=== PATIENT | male | born 1970 | race Caucasian/White ===

== ENCOUNTER 2016-06-03 11:43 | Emergency (ER) | payer MEDICARE, MEDICAID ==
[~2016-06-03 11:43] MED LIST: /FENO48TA; /PANT40TA PO; /WARF2TA PO; /WARF5TA PO; /ZOLP6ER; ACET65TA OR; ACID CONTROLLER; ADVI200T26 PO; ALLE25CA; AMBI10TA PO; AMBI12.52 PO; AMBIEN PO; ASPI81TA7 PO; ASPI81TA83 OR; ATOR40TA PO; BACT400T PO; BACT800T5 PO; BENA25CA PO; CALCCHW18 PO; CEFA1INJ5 IV; CIAL2.5T PO; CINA30TA PO; CITA10TA5 PO; CORE3.12 PO; COUM1TAB19 PO; COUM6TAB PO; COUM7.5T PO; DIFI200T PO; DRIS50002 PO; FLUT1SPR2; FURO1TAB15 PO; GLYB1.255; HUMALOG; HYDR-3363 PO; HYDR-3713 PO; HYDR25TA8; IBUP600T PO; IMMODIUM PO; INSUHUMDS SC; INSULANT; INSULANT SC; KEFLEX; LASI40TA PO; LEVO100T4 PO; LEVO100T54 PO; LEVO2TA; LEVO2TA PO; LIPI10TA; LIPI10TA PO; LOPE2CA PO; LOPR50TA; MELA10CA PO; METO-346 PO; METO10TA2; METO25TAB PO; METO50TA4 PO; NASONEX; NEPH1CAP4 PO; NEPHROVITE; NITR4TASL SL; OCEAN NASAL SPRAY; ONDA1TAB15 PO; OXYC1TAB23 PO; PANT40TA2 PO; PERCOCET PO; PHOSLO667 MG; POLYSPORIN; RENAGEL; RENV2TAB PO; SENISPAR; SENS30TA PO; SENSIPAR PO; SYNT100T PO; TEMA30CA PO; TOPR25TA PO; TOPROL XL; TRAD5TAB PO; TRAZ25TA PO; TRAZ50TA; TRAZ50TA4 PO; TRAZADONE; TUMS500C; TYL325; TYLE1TAB5 PO; TYLENOL PM; VANC1VLAD INJ; VANC500I IV; VANC75VL IV; VELP5CHW PO; VICO5TAB; VIST25CA OR; VITAMIN B COMPLE1; WARF-20 PO; WARF-23 PO; WARF-58 PO; WARF-60 PO; WARF4TAB51 PO; ZEMPLAR; ZOLP5TAB PO; [UNRECOGNIZED DRUG - OTHER]; doxycycline PO; renvela; tums PO; tylenol PO; zemplar IV
--- NOTE | 2016-06-03 12:37 | REP ---
Clinical: Shortness of breath. Comparison: 04/22/2016. Findings: Mediastinum is stable again demonstrating cardiomegaly with evidence for prior sternotomy and valve replacement. Lung franco demonstrate chronic stable changes. No obvious acute consolidation, effusion, or pneumothorax. Skeletal structures intact. Impression: Cardiomegaly and chronic stable changes. Signed by Manfred Whitt MD 06/03/2016 12:29 P
[2016-06-03 13:14] LABS: BASO % 0.7 % (0.0-1.0); EOS # 0.1 K/mm3 (0.0-0.50); EOS % 2.4 % (0.0-3.0); LARGE UNSTAINED CELL # 0.2 K/mm3 (0.0-0.4); LARGE UNSTAINED CELL % 2.8 % (0.0-4.0); LYMPH # 0.6 K/mm3 (1.5-4.5); LYMPH % 10.5 % (24.0-44.0); MEAN CORPUSCULAR HEMOGLOBIN 29.1 pg (27.0-33.0); MEAN CORPUSCULAR HGB CONC 30.4 g/dl (32.0-36.5); MEAN CORPUSCULAR VOLUME 95.7 fl (80.0-96.0); MONO # 0.2 K/mm3 (0.0-0.8); MONO % 4.6 % (0.0-5.0); NEUTROPHILS # 4.2 K/mm3 (1.8-7.7); NEUTROPHILS % 78.9 % (36.0-66.0); PLATELET COUNT, AUTOMATED 210 k/mm3 (150-450); RED CELL DISTRIBUTION WIDTH 18.1 % (11.5-14.5); WHITE BLOOD COUNT 5.3 K/mm3 (4.0-10.0)
[2016-06-03] MEDS ORDERED: IPRATROPIUM 0.5MG/ALBUTEROL 2.5MG INH SOL UD 3ML (DUONEB)(J7620) As Ordered ONE (13:31)
[2016-06-03 13:36] LABS: CALCIUM LEVEL 8.7 MG/DL (8.5-10.1); CREATININE FOR GFR 8.3 MG/DL (0.70-1.30); GLOMERULAR FILTRATION RATE 7.5 (>60); POTASSIUM SERUM 4.3 MEQ/L (3.5-5.1)
[2016-06-03] MEDS ORDERED: ALBUTEROL 90 MCG/ACT 8GM HFA INHALER As Ordered ONE (14:42)
--- NOTE | 2016-06-03 14:54 | EDDOCDS ---
Nurse's Notes [facility] Name: Kristofer Madrid Age: 45 yrs Sex: Male : 1970 Arrival Date: 06/03/2016 Time: 11:43 Bed 4 Private MD: Kush Nam P Diagnosis: Acute upper respiratory infection, unspecified Presentation: 06/03 11:52 Presenting complaint: Patient states: treated for pneumonia 3 weeks ago. unsure of dy course of antibiotics. over the last 2 weeks has gotten progressively more SOB. Adult Sepsis Screening: The patient does not have new or worsening altered mentation. Patient's respiratory rate is less than 22. Systolic blood pressure is greater than 100. Patient has a qSOFA score of 0- Negative Sepsis Screen. Suicide/Homicide risk assessment- the patient denies having any suicidal and/or homicidal ideations and does not present with any other emotional, behavioral or mental health complaints. 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 Transition of care: patient was not received from another setting of care. 11:52 Acuity: SRINIVAS Level 2 dy 11:52 Method Of Arrival: Walkin/Carried/Asstd dy Triage Assessment: 11:55 General: Appears in no apparent distress. Pain: Denies pain. HIV screening NA for this dy visit Offered previously. Respiratory: Onset: The symptoms/episode began/occurred gradually. Historical: - Allergies: Latex; QUINOLONES; SUCCINYLCHOLINE; - Home Meds: 1. Advil PM 200-38 mg oral tab 2 tab 2. atorvastatin 40 mg oral tab 1 tab once daily 3. calcium gummies 250-100-500 mg 1 gummy DIRECTED 4. citalopram 10 mg Oral tab 1 tab once daily 5. hydrocodone-acetaminophen 5-325 mg Oral tab 1 tab every 4-6 hours 6. Lantus 100 unit/mL Sub-Q soln 30 unit daily 7. levothyroxine 200 mcg Oral tab 1 tab once daily 8. metoprolol tartrate 25 mg Oral tab 1 tab 2 times per day 9. ondansetron HCl 4 mg Oral tab 1 tabs 2 times per day as needed 10. pantoprazole 40 mg oral tab 1 tab once daily 11. Renvela 800 mg oral tab 3 times per day 4 tabs with meal, 2 tabs with snacks 12. Sensipar 30 mg oral tab once daily 13. trazodone 50 mg Oral tab 1 tab nightly 14. vancomycin 1 G intravenous solr 3 days a weel post dialysis 15. warfarin 6 mg Oral tab once daily up to 2 tabs daily - PMHx: Anxiety; CAD; CHF; Depression; Diabetes - IDDM: controlled; end stage renal failure; GERD; High Cholesterol; Hypertension; Sleep Apnea w/ CPAP; Thyroid problem; Votter's syndrome; - PSHx: multiple fistula formations with reversals; Ankle Arthroplasty, Right; Bowel resection; perforated anus; Aortic Valve Replacement, Mechanical; Mitral Valve Repair; - Social history: Smoking status: Patient states was never smoker of tobacco. No barriers to communication noted, The patient speaks fluent [place]ian, Speaks appropriately for age. - Family history: No immediate family members are acutely ill. - : The pt / caregiver states he / she is on anticoagulants: coumadin. Home medication list is obtained from the patient. - Exposure Risk Screening:: None identified. Screenin:53 Screening information is obtained from the patient. Fall risk: No risks identified. hs1 Assistance ADL's: requires no assistance with activities of daily living. Abuse/DV Screen: The patient / caregiver reports he/she is: not in a situation that causes fear, pain or injury. Nutritional screening: No deficits noted. Advance Directives: There is no active DNR order. home support is adequate. Assessment: 12:34 General: Appears in no apparent distress, comfortable, Behavior is appropriate for age, hs1 cooperative. Pain: Denies pain. Cardiovascular: Rhythm is sinus rhythm No ectopy. Cardiovascular: Capillary refill < 3 seconds Chest pain is denied. Respiratory: Airway is patent Respiratory effort is even, unlabored, Breath sounds are clear bilaterally. Reports shortness of breath on exertion. Derm: Skin is pink, warm & dry. normal. 13:45 General: Appears in no apparent distress, comfortable, Behavior is appropriate for age, hs1 cooperative. Pain: Denies pain. Cardiovascular: Rhythm is sinus rhythm No ectopy. Respiratory: Airway is patent Respiratory effort is even, unlabored, Breath sounds are clear bilaterally. Respiratory: Reports shortness of breath on exertion. Derm: Skin is pink, warm & dry. normal. 14:37 General: Ambulated patient at this time without any decrease in SPO2. Patient states hs1 feels like he is SOB and slows down while walking. Pt HR does increase mildly from 87 to 98. Pt vitals monitored after with decrease in HR noted back to 87 within 1 minute. No needs noted after walking and patient continues to deny chest pain. . Vital Signs: 11:45 BP 143 / 80 RA Sitting (auto/reg); Pulse 87; Resp 20; Temp 96.8(O); Pulse Ox 100% on rs6 R/A; Weight 86 kg (R); Height 5 ft. 2 in. (157.48 cm) (R); Pain 0/10; 12:57 BP 122 / 66 (auto/); hs1 12:59 Pulse 86 MON; Pulse Ox 98% ; hs1 13:12 BP 128 / 66 (auto/); hs1 13:12 Pulse 84 MON; Pulse Ox 98% ; hs1 13:27 BP 133 / 72 (auto/); hs1 13:27 Pulse 82 MON; Pulse Ox 94% ; hs1 13:42 BP 138 / 78 (auto/); hs1 13:42 Pulse 86 MON; Pulse Ox 97% ; hs1 13:57 BP 141 / 77 (auto/); hs1 13:59 Pulse 80 MON; Pulse Ox 97% ; hs1 14:12 BP 145 / 80 (auto/); hs1 14:12 Pulse 84 MON; Pulse Ox 99% ; hs1 14:42 BP 130 / 68 (auto/); hs1 14:42 Pulse 80 MON; Resp 18; Temp 98.0(TE); Pulse Ox 98% ; Pain 0/10; hs1 11:45 Body Mass Index 34.68 (86.00 kg, 157.48 cm) rs6 Vitals: 11:45 Log In Time: June 03, 2016 at 11:40. RN notified that patient meets Red Flag rs6 criteria. ED Course: 11:44 Patient visited by Suzie Stewart PCA. rs6 11:44 Patient moved to Waiting rs6 11:45 Kush Nam is Private Physician. rs6 11:47 Patient visited by Suzie Stewart PCA. rs6 11:47 Patient moved to Pre RCE rs6 11:53 Triage Initiated dy 11:56 Patient moved to 4 dy 12:04 Patient visited by Good Cardenas PCA. jrd 12:04 EKG done. (by ED staff). Reviewed by Jonathan Alonso MD. jrd 12:29 Patient visited by Jf Glez PCA. jlf 12:35 Inserted saline lock: 20 gauge in right upper arm near axilla. Pt tolerated well. hs1 12:42 Jonathan Alonso MD is Attending Physician. br1 13:00 Patient visited by Jf Glez PCA. jlf 13:15 Patient visited by Jonathan Alonso MD. br1 13:15 Chest, 1 View Returned. EDMS 13:46 Patient visited by Karie Lucas, VU. hs1 14:01 Patient visited by Tiki Causey, VU. ttb 14:01 Labs drawn. (by ED staff). ttb 14:23 Patient visited by Jf Glez PCA. jlf 14:36 Patient visited by Jonathan Alonso MD. br1 14:41 Kush Nam is Referral Physician. br1 14:50 [facility] Payment Agreement was scanned into [employer] and attached to record. pm4 14:51 Discontinued IV lock intact, bleeding controlled, pressure dressing applied, No hs1 redness/swelling at site. No procedures done that require assistance. 14:53 The patient / caregiver is instructed regarding the plan of care and ED course. hs1 Administered Medications: 13:33 Drug: Albuterol-Ipratropium 3 ml [ipratropium-albuterol 0.5 mg-3 mg(2.5 mg base)/3 mL ac1 nebulization soln (3 mL)] Route: Inhalation; 13:36 Follow up: bs-clear, rosa m procedure well ac1 14:45 Drug: Ventolin 2 puffs [Ventolin HFA 90 mcg/actuation aerosol inhaler (2 puffs)] Route: sd7 Inhalation; Intake: RT: 13:35 Initial Med Neb Given as ordered Patient was instructed and evaluated on procedure. ac1 13:35 Respiratory: Breath sounds are clear bilaterally. ac1 14:45 Initial MDI Given. Patient was instructed and evaluated on procedure Patient tolerated sd7 procedure well without adverse effect Spacer used Number of puffs given: 2. Order Results: Lab Order: CBC with Diff; SPEC'M 06/03/16 12:55 Test: WHITE BLOOD COUNT; Value: 5.3; Range: 4.0-10.0; Units: K/mm3; Status: F Test: RED BLOOD COUNT; Value: 3.06; Range: 4.30-6.10; Abnormal: Below low normal; Units: M/mm3; Status: F Test: HEMOGLOBIN; Value: 8.9; Range: 14.0-18.0; Abnormal: Below low normal; Units: g/dl; Status: F Test: HEMATOCRIT; Value: 29.3; Range: 42.0-52.0; Abnormal: Below low normal; Units: %; Status: F Test: MEAN CORPUSCULAR VOLUME; Value: 95.7; Range: 80.0-96.0; Units: fl; Status: F Test: MEAN CORPUSCULAR HEMOGLOBIN; Value: 29.1; Range: 27.0-33.0; Units: pg; Status: F Test: MEAN CORPUSCULAR HGB CONC; Value: 30.4; Range: 32.0-36.5; Abnormal: Below low normal; Units: g/dl; Status: F Test: RED CELL DISTRIBUTION WIDTH; Value: 18.1; Range: 11.5-14.5; Abnormal: Above high normal; Units: %; Status: F Test: PLATELET COUNT, AUTOMATED; Value: 210; Range: 150-450; Units: k/mm3; Status: F Test: NEUTROPHILS %; Value: 78.9; Range: 36.0-66.0; Abnormal: Above high normal; Units: %; Status: F Test: LYMPH %; Value: 10.5; Range: 24.0-44.0; Abnormal: Below low normal; Units: %; Status: F Test: MONO %; Value: 4.6; Range: 0.0-5.0; Units: %; Status: F Test: EOS %; Value: 2.4; Range: 0.0-3.0; Units: %; Status: F Test: BASO %; Value: 0.7; Range: 0.0-1.0; Units: %; Status: F Test: LARGE UNSTAINED CELL %; Value: 2.8; Range: 0.0-4.0; Units: %; Status: F Test: NEUTROPHILS #; Value: 4.2; Range: 1.8-7.7; Units: K/mm3; Status: F Test: LYMPH #; Value: 0.6; Range: 1.5-4.5; Abnormal: Below low normal; Units: K/mm3; Status: F Test: MONO #; Value: 0.2; Range: 0.0-0.8; Units: K/mm3; Status: F Test: EOS #; Value: 0.1; Range: 0.0-0.50; Units: K/mm3; Status: F Test: BASO #; Value: 0.0; Range: 0.0-0.2; Units: K/mm3; Status: F Test: LARGE UNSTAINED CELL #; Value: 0.2; Range: 0.0-0.4; Units: K/mm3; Status: F Lab Order: MED Profile; SPEC'M 06/03/16 12:55 Test: GLUCOSE, FASTING; Value: 248; Range: 70-105; Abnormal: Above high normal; Units: MG/DL; Status: F Test: BLOOD UREA NITROGEN; Value: 49; Range: 7-18; Abnormal: Above high normal; Units: MG/DL; Status: F Test: CREATININE FOR GFR; Value: 8.30; Range: 0.70-1.30; Abnormal: Above high normal; Units: MG/DL; Status: F Test: GLOMERULAR FILTRATION RATE; Value: 7.5; Range: >60; Abnormal: Below low normal; Status: F Test: SODIUM LEVEL; Value: 137; Range: 136-145; Units: MEQ/L; Status: F Test: POTASSIUM SERUM; Value: 4.3; Range: 3.5-5.1; Units: MEQ/L; Status: F Test: CHLORIDE LEVEL; Value: 100; Range: 98-107; Units: MEQ/L; Status: F Test: CARBON DIOXIDE LEVEL; Value: 22; Range: 21-32; Units: MEQ/L; Status: F Test: ANION GAP; Value: 15; Range: 8-16; Units: MEQ/L; Status: F Test: CALCIUM LEVEL; Value: 8.7; Range: 8.5-10.1; Units: MG/DL; Status: F Test Note: ; Units are mL/min/1.73 m2 Chronic Kidney Disease Staging per NKF: Stage I & II GFR >=60 Normal to Mildly Decreased Stage III GFR 30-59 Moderately Decreased Stage IV GFR 15-29 Severely Decreased Stage V GFR <15 Very Little GFR Left ESRD GFR <15 on 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 Lab Order: CIP; SPEC'M 06/03/16 12:55 Test: CPK CREATINE PHOSPHOKINASE; Value: 108; Range: 39-308; Units: U/L; Status: F Test: CK-MB VALUE MASS; Value: 3.4; Range: 0.0-3.6; Units: NG/ML; Status: F Test: MB/CK RELATIVE INDEX; Value: 3.14; Range: < OR =4; Status: F Test Note: ; DIAGNOSIS CRITERIA MMB ng/ml Relative Index (RI) NON-AMI < or = 5 N/A RAM ZONE > 5 < or = 4 AMI > 5 > 4 Lab Order: Troponin; SPEC'M 06/03/16 12:55 Test: TROPONIN I; Value: 0.03; Range: < 0.10; Units: NG/ML; Status: F Test Note: ; Troponin I Reference Interval for [employer] LOCI: 99th Percentile= 0.00-0.045 ng/ml Risk Stratification: <= 0.10 ng/ml Decreased Risk for Adverse Clinical Events. 0.10-1.50 ng/ml Increased Risk for Adverse Clinical Events. Evaluation of additional criterion and/or repeat testing in 2-6 hours is suggested to rule out myocardial damage. >= 1.50 ng/ml Indicative of Myocardial Injury. Lab Order: BNP; SPEC'M 06/03/16 12:55 Test: BRAIN NATRIURETIC PEPTIDE; Value: 2730; Range: <100; Abnormal: Above high normal; Units: PG/ML; Status: F Lab Order: -Influenza A&B Rapid Antigen - Nose; SPEC'M 06/03/16 13:27 Test: INFLUENZA A RAPID SCR by ICA; Value: INFLUENZA A RESULTS NEGATIVE; Status: F Test: INFLUENZA A RAPID SCR by ICA; Value: Comments:; Status: F Test: INFLUENZA B RAPID SCR by ICA; Value: INFLUENZA B RESULTS NEGATIVE; Status: F Test Note: ; The Influenza test is a direct rapid immunoassay for the qualitative detection of Influenza viral antigen. Cell culture (Viral Culture) testing should be considered to confirm NEGATIVE results and to assist in detecting other viruses that can provide similar clinical symptoms. Please contact the lab within 24 hours ([phone]) if confirmatory testing is desired. Radiology Order: Chest, 1 View Test: Chest, 1 View REASON FOR EXAMINATION: sob; Clinical: Shortness of breath.; ; Comparison: 04/22/2016.; ; Findings:; Mediastinum is stable again demonstrating cardiomegaly with evidence for prior; sternotomy and valve replacement. Lung franco demonstrate chronic stable; changes. No obvious acute consolidation, effusion, or pneumothorax. Skeletal; structures intact.; ; Impression:; Cardiomegaly and chronic stable changes.; ; ; Signed by; Manfred Whitt MD 06/03/2016 12:29 P; Outcome: 14:41 Discharge ordered by Provider. br1 14:51 Discharge Assessment: Patient awake, alert and oriented x 3. No cognitive and/or hs1 functional deficits noted. Patient verbalized understanding of disposition instructions. patient administered narcotics - no. The following High Risk Discharge criteria are identified: None. Discharged to home ambulatory. Condition: stable. Discharge instructions given to patient, Instructed on discharge instructions, follow up and referral plans. sales technician in to educate about spacer teaching with albuterol inhaler. Demonstrated understanding of instructions, medications, Pt was receptive of discharge instructions/ teaching. No special radiology studies were completed. Property sent home with patient. 14:53 Patient left the ED. hs1 Signatures: Dispatcher [employer] EDMS Gaye Sprague,RT RT ac1 Babak Koehler, RN VU dy Jonathan Alonso MD MD br1 Karie Lucas RN RN hs1 Tiki Causey RN RN ttb Jf Glez, FOOD BAGGING MACHINE OPERATOR FOOD BAGGING MACHINE OPERATOR Tori Fountain,RT RT sd7 Good Cardenas, FOOD BAGGING MACHINE OPERATOR FOOD BAGGING MACHINE OPERATOR Suzie Simpson, FOOD BAGGING MACHINE OPERATOR FOOD BAGGING MACHINE OPERATOR rs6 Darrel Wallace, Reg Reg pm4 Corrections: (The following items were deleted from the chart) 14:53 14:42 Pulse 80bpm; Monitor; Pulse Ox 98%; hs1 hs1 MTDD
--- NOTE | 2016-06-03 14:54 | EDDOCDS ---
Physician Documentation [facility] Name: Kristofer Madrid Age: 45 yrs Sex: Male : 1970 Arrival Date: 06/03/2016 Time: 11:43 Bed 4 Private MD: Kush Nam P Disposition: 06/03/16 14:41 Discharged to Home/Self Care. Impression: Acute upper respiratory infection, unspecified. - Condition is Stable. - Discharge Instructions: Shortness of Breath, Upper Respiratory Infection, Adult. - Medication Reconciliation, Local Pharmacy Hours form. - Follow up: Kush Nam; When: Tomorrow; Reason: Recheck today's complaints. - Problem is new. - Symptoms have improved. - Notes: You were seen in the ED for shortness of breath. Bloodwork showed no acute changes from prior. Chest Xray showed chronic changes but no acute findings as well. Flu swab is negative. You were treated and improved with a breathing treatment in the ED as well. As you are feeling better you may return home to follow up with Dr. Nam tomorrow for dialysis and recheck of the symptoms. You may use the inhaler as needed for shortness of breath or wheezing. Return to the ED for any return of trouble breathing, lightheadedness, loss of consciousness, chest pain, fever, or any other concerns. Historical: - Allergies: Latex; QUINOLONES; SUCCINYLCHOLINE; - Home Meds: 1. Advil PM 200-38 mg oral tab 2 tab 2. atorvastatin 40 mg oral tab 1 tab once daily 3. calcium gummies 250-100-500 mg 1 gummy DIRECTED 4. citalopram 10 mg Oral tab 1 tab once daily 5. hydrocodone-acetaminophen 5-325 mg Oral tab 1 tab every 4-6 hours 6. Lantus 100 unit/mL Sub-Q soln 30 unit daily 7. levothyroxine 200 mcg Oral tab 1 tab once daily 8. metoprolol tartrate 25 mg Oral tab 1 tab 2 times per day 9. ondansetron HCl 4 mg Oral tab 1 tabs 2 times per day as needed 10. pantoprazole 40 mg oral tab 1 tab once daily 11. Renvela 800 mg oral tab 3 times per day 4 tabs with meal, 2 tabs with snacks 12. Sensipar 30 mg oral tab once daily 13. trazodone 50 mg Oral tab 1 tab nightly 14. vancomycin 1 G intravenous solr 3 days a weel post dialysis 15. warfarin 6 mg Oral tab once daily up to 2 tabs daily - PMHx: Anxiety; CAD; CHF; Depression; Diabetes - IDDM: controlled; end stage renal failure; GERD; High Cholesterol; Hypertension; Sleep Apnea w/ CPAP; Thyroid problem; Votter's syndrome; - PSHx: multiple fistula formations with reversals; Ankle Arthroplasty, Right; Bowel resection; perforated anus; Aortic Valve Replacement, Mechanical; Mitral Valve Repair; - Social history: Smoking status: Patient states was never smoker of tobacco. No barriers to communication noted, The patient speaks fluent [place], Speaks appropriately for age. - Family history: No immediate family members are acutely ill. - : The pt / caregiver states he / she is on anticoagulants: coumadin. Home medication list is obtained from the patient. - Exposure Risk Screening:: None identified. Vital Signs: 06/03 11:45 BP 143 / 80 RA Sitting (auto/reg); Pulse 87; Resp 20; Temp 96.8(O); Pulse Ox 100% on rs6 R/A; Weight 86 kg / 189.6 lbs (R); Height 5 ft. 2 in. (157.48 cm) (R); Pain 0/10; 12:57 BP 122 / 66 (auto/); hs1 12:59 Pulse 86 MON; Pulse Ox 98% ; hs1 13:12 BP 128 / 66 (auto/); hs1 13:12 Pulse 84 MON; Pulse Ox 98% ; hs1 13:27 BP 133 / 72 (auto/); hs1 13:27 Pulse 82 MON; Pulse Ox 94% ; hs1 13:42 BP 138 / 78 (auto/); hs1 13:42 Pulse 86 MON; Pulse Ox 97% ; hs1 13:57 BP 141 / 77 (auto/); hs1 13:59 Pulse 80 MON; Pulse Ox 97% ; hs1 14:12 BP 145 / 80 (auto/); hs1 14:12 Pulse 84 MON; Pulse Ox 99% ; hs1 14:42 BP 130 / 68 (auto/); hs1 14:42 Pulse 80 MON; Resp 18; Temp 98.0(TE); Pulse Ox 98% ; Pain 0/10; hs1 11:45 Body Mass Index 34.68 (86.00 kg, 157.48 cm) rs6 MDM: 11:57 ECG WITH READING ER PHYS+CARDIAG ordered. EDMS 11:59 IV Saline Lock ordered. ml 11:[address] Sql Developer/Pulse Ox/q 15 min VS ordered. ml 11:59 Chest, 1 View Ordered. EDMS 11:59 CBC with Diff Ordered. EDMS 11:59 MED Profile Ordered. EDMS 11:59 CIP Ordered. EDMS 11:59 Troponin Ordered. EDMS 11:59 BNP Ordered. EDMS 13:15 Albuterol-Ipratropium 3 ml Inhalation once ordered. br1 13:15 Call Respiratory ordered. br1 13:17 -Influenza A&B Rapid Antigen - Nose Ordered. EDMS 13:20 Call Respiratory complete. lbd 13:57 Financial registration complete. pm4 14:23 CBC with Diff Reviewed. br1 14:23 MED Profile Reviewed. br1 14:23 BNP Reviewed. br1 14:23 CIP Reviewed. br1 14:23 Troponin Reviewed. br1 14:23 -Influenza A&B Rapid Antigen - Nose Reviewed. br1 14:23 Chest, 1 View Reviewed. br1 14:25 Ambulate Patient wth Pulse Oximetry ordered. br1 14:36 Ventolin Inhaler 2 puffs Inhalation once ordered. br1 14:50 [facility] Payment Agreement was scanned into [employer] and attached to record. pm4 Administered Medications: 13:33 Drug: Albuterol-Ipratropium 3 ml [ipratropium-albuterol 0.5 mg-3 mg(2.5 mg base)/3 mL ac1 nebulization soln (3 mL)] Route: Inhalation; 13:36 Follow up: bs-clear, rosa m procedure well ac1 14:45 Drug: Ventolin 2 puffs [Ventolin HFA 90 mcg/actuation aerosol inhaler (2 puffs)] Route: sd7 Inhalation; Signatures: Dispatcher [employer] EDMS Mike Edwards MD MD ml Daly, Linda, Pbx Inspector Unit lbd Babak Koehler RN RN dy Jonathan Alonso MD MD br1 Karie Lucas RN RN hs1 Darrel Wallace, Reg Reg pm4 Gaye Sprague RT ac1 Tori Ward RT sd7 The chart was reviewed and I authenticate all verbal orders and agree with the evaluation and treatment provided.Attachments: 14:50 [place] Payment Agreement pm4 MTDD
--- NOTE | 2016-06-03 18:10 | ECGEPIP ---
Stationary ECG Study [facility] - ED Test Date: 2016-06-03 Pat Name: BOOGIE MONTERO Department: Room: - Gender: M Pharmacy Salesperson: zohreh : 1970 Requested By: Miek Edwards Order Number: [id number] Reading MD: Jessica Fair Measurements Intervals [place] Rate: 84 P: 3 KS: 182 QRS: 21 QRSD: 105 T: 60 QT: 364 QTc: 432 Interpretive Statements SINUS RHYTHM NONSPECIFIC T-WAVE ABNORMALITY SIMILAR 04/21/16 Electronically Signed On 06-03-2016 18:09:58 EST by Jessica Fair
--- NOTE | 2016-06-05 15:54 | EDDOCDS ---
Physician Documentation [facility] Name: Kristofer Madrid Age: 45 yrs Sex: Male : 1970 Arrival Date: 06/03/2016 Time: 11:43 Bed 4 Private MD: Kush Nam P Disposition: 06/03/16 14:41 Discharged to Home/Self Care. Impression: Acute upper respiratory infection, unspecified. - Condition is Stable. - Discharge Instructions: Shortness of Breath, Upper Respiratory Infection, Adult. - Medication Reconciliation, Local Pharmacy Hours form. - Follow up: Kush Nam; When: Tomorrow; Reason: Recheck today's complaints. - Problem is new. - Symptoms have improved. - Notes: You were seen in the ED for shortness of breath. Bloodwork showed no acute changes from prior. Chest Xray showed chronic changes but no acute findings as well. Flu swab is negative. You were treated and improved with a breathing treatment in the ED as well. As you are feeling better you may return home to follow up with Dr. Nam tomorrow for dialysis and recheck of the symptoms. You may use the inhaler as needed for shortness of breath or wheezing. Return to the ED for any return of trouble breathing, lightheadedness, loss of consciousness, chest pain, fever, or any other concerns. Historical: - Allergies: Latex; QUINOLONES; SUCCINYLCHOLINE; - Home Meds: 1. Advil PM 200-38 mg oral tab 2 tab 2. atorvastatin 40 mg oral tab 1 tab once daily 3. calcium gummies 250-100-500 mg 1 gummy DIRECTED 4. citalopram 10 mg Oral tab 1 tab once daily 5. hydrocodone-acetaminophen 5-325 mg Oral tab 1 tab every 4-6 hours 6. Lantus 100 unit/mL Sub-Q soln 30 unit daily 7. levothyroxine 200 mcg Oral tab 1 tab once daily 8. metoprolol tartrate 25 mg Oral tab 1 tab 2 times per day 9. ondansetron HCl 4 mg Oral tab 1 tabs 2 times per day as needed 10. pantoprazole 40 mg oral tab 1 tab once daily 11. Renvela 800 mg oral tab 3 times per day 4 tabs with meal, 2 tabs with snacks 12. Sensipar 30 mg oral tab once daily 13. trazodone 50 mg Oral tab 1 tab nightly 14. vancomycin 1 G intravenous solr 3 days a weel post dialysis 15. warfarin 6 mg Oral tab once daily up to 2 tabs daily - PMHx: Anxiety; CAD; CHF; Depression; Diabetes - IDDM: controlled; end stage renal failure; GERD; High Cholesterol; Hypertension; Sleep Apnea w/ CPAP; Thyroid problem; Votter's syndrome; - PSHx: multiple fistula formations with reversals; Ankle Arthroplasty, Right; Bowel resection; perforated anus; Aortic Valve Replacement, Mechanical; Mitral Valve Repair; - Social history: Smoking status: Patient states was never smoker of tobacco. No barriers to communication noted, The patient speaks fluent Panamanian, Speaks appropriately for age. - Family history: No immediate family members are acutely ill. - : The pt / caregiver states he / she is on anticoagulants: coumadin. Home medication list is obtained from the patient. - Exposure Risk Screening:: None identified. Vital Signs: 06/03 11:45 BP 143 / 80 RA Sitting (auto/reg); Pulse 87; Resp 20; Temp 96.8(O); Pulse Ox 100% on rs6 R/A; Weight 86 kg / 189.6 lbs (R); Height 5 ft. 2 in. (157.48 cm) (R); Pain 0/10; 12:57 BP 122 / 66 (auto/); hs1 12:59 Pulse 86 MON; Pulse Ox 98% ; hs1 13:12 BP 128 / 66 (auto/); hs1 13:12 Pulse 84 MON; Pulse Ox 98% ; hs1 13:27 BP 133 / 72 (auto/); hs1 13:27 Pulse 82 MON; Pulse Ox 94% ; hs1 13:42 BP 138 / 78 (auto/); hs1 13:42 Pulse 86 MON; Pulse Ox 97% ; hs1 13:57 BP 141 / 77 (auto/); hs1 13:59 Pulse 80 MON; Pulse Ox 97% ; hs1 14:12 BP 145 / 80 (auto/); hs1 14:12 Pulse 84 MON; Pulse Ox 99% ; hs1 14:42 BP 130 / 68 (auto/); hs1 14:42 Pulse 80 MON; Resp 18; Temp 98.0(TE); Pulse Ox 98% ; Pain 0/10; hs1 11:45 Body Mass Index 34.68 (86.00 kg, 157.48 cm) rs6 MDM: 11:57 ECG WITH READING ER PHYS+CARDIAG ordered. EDMS 11:59 IV Saline Lock ordered. ml 11:59 Decker Operator/Pulse Ox/q 15 min VS ordered. ml 11:59 Chest, 1 View Ordered. EDMS 11:59 CBC with Diff Ordered. EDMS 11:59 MED Profile Ordered. EDMS 11:59 CIP Ordered. EDMS 11:59 Troponin Ordered. EDMS 11:59 BNP Ordered. EDMS 13:15 Albuterol-Ipratropium 3 ml Inhalation once ordered. br1 13:15 Call Respiratory ordered. br1 13:17 -Influenza A&B Rapid Antigen - Nose Ordered. EDMS 13:20 Call Respiratory complete. lbd 13:57 Financial registration complete. pm4 14:23 CBC with Diff Reviewed. br1 14:23 MED Profile Reviewed. br1 14:23 BNP Reviewed. br1 14:23 CIP Reviewed. br1 14:23 Troponin Reviewed. br1 14:23 -Influenza A&B Rapid Antigen - Nose Reviewed. br1 14:23 Chest, 1 View Reviewed. br1 14:25 Ambulate Patient wth Pulse Oximetry ordered. br1 14:36 Ventolin Inhaler 2 puffs Inhalation once ordered. br1 14:50 [facility] Payment Agreement was scanned into drumbi and attached to record. pm4 15:10 T-Sheet-- Draft Copy was scanned into drumbi and attached to record. gb 06/04 09:11 ECG/EKG was scanned into drumbi and attached to record. gb Administered Medications: 06/03 13:33 Drug: Albuterol-Ipratropium 3 ml [ipratropium-albuterol 0.5 mg-3 mg(2.5 mg base)/3 mL ac1 nebulization soln (3 mL)] Route: Inhalation; 13:36 Follow up: bs-clear, rosa m procedure well ac1 14:45 Drug: Ventolin 2 puffs [Ventolin HFA 90 mcg/actuation aerosol inhaler (2 puffs)] Route: sd7 Inhalation; Signatures: Dispatcher [employer] EDMS Mike Edwards MD MD ml Daly, Linda, Literacy Consultant Unit lbd Michelle Huynh, Reg Reg gb Babak Koehler, RN RN dy Jonathan Alonso MD MD br1 Karie Lucas RN RN hs1 Darrel Wallace, Reg Reg pm4 Gaye Sprague RT ac1 Tori Ward RT sd7 The chart was reviewed and I authenticate all verbal orders and agree with the evaluation and treatment provided.Attachments: 14:50 [facility] Payment Agreement pm4 15:10 T-Sheet-- Draft Copy gb 06/04 09:11 ECG/EKG gb Chart Complete MTDD
--- NOTE | 2016-06-05 15:54 | EDDOCDS ---
Physician Documentation [facility] Name: Kristofer Madrid Age: 45 yrs Sex: Male : 1970 Arrival Date: 06/03/2016 Time: 11:43 Bed 4 Private MD: Kush Nam P Disposition: 06/03/16 14:41 Discharged to Home/Self Care. Impression: Acute upper respiratory infection, unspecified. - Condition is Stable. - Discharge Instructions: Shortness of Breath, Upper Respiratory Infection, Adult. - Medication Reconciliation, Local Pharmacy Hours form. - Follow up: Kush Nam; When: Tomorrow; Reason: Recheck today's complaints. - Problem is new. - Symptoms have improved. - Notes: You were seen in the ED for shortness of breath. Bloodwork showed no acute changes from prior. Chest Xray showed chronic changes but no acute findings as well. Flu swab is negative. You were treated and improved with a breathing treatment in the ED as well. As you are feeling better you may return home to follow up with Dr. Nam tomorrow for dialysis and recheck of the symptoms. You may use the inhaler as needed for shortness of breath or wheezing. Return to the ED for any return of trouble breathing, lightheadedness, loss of consciousness, chest pain, fever, or any other concerns. Historical: - Allergies: Latex; QUINOLONES; SUCCINYLCHOLINE; - Home Meds: 1. Advil PM 200-38 mg oral tab 2 tab 2. atorvastatin 40 mg oral tab 1 tab once daily 3. calcium gummies 250-100-500 mg 1 gummy DIRECTED 4. citalopram 10 mg Oral tab 1 tab once daily 5. hydrocodone-acetaminophen 5-325 mg Oral tab 1 tab every 4-6 hours 6. Lantus 100 unit/mL Sub-Q soln 30 unit daily 7. levothyroxine 200 mcg Oral tab 1 tab once daily 8. metoprolol tartrate 25 mg Oral tab 1 tab 2 times per day 9. ondansetron HCl 4 mg Oral tab 1 tabs 2 times per day as needed 10. pantoprazole 40 mg oral tab 1 tab once daily 11. Renvela 800 mg oral tab 3 times per day 4 tabs with meal, 2 tabs with snacks 12. Sensipar 30 mg oral tab once daily 13. trazodone 50 mg Oral tab 1 tab nightly 14. vancomycin 1 G intravenous solr 3 days a weel post dialysis 15. warfarin 6 mg Oral tab once daily up to 2 tabs daily - PMHx: Anxiety; CAD; CHF; Depression; Diabetes - IDDM: controlled; end stage renal failure; GERD; High Cholesterol; Hypertension; Sleep Apnea w/ CPAP; Thyroid problem; Votter's syndrome; - PSHx: multiple fistula formations with reversals; Ankle Arthroplasty, Right; Bowel resection; perforated anus; Aortic Valve Replacement, Mechanical; Mitral Valve Repair; - Social history: Smoking status: Patient states was never smoker of tobacco. No barriers to communication noted, The patient speaks fluent Kenyan, Speaks appropriately for age. - Family history: No immediate family members are acutely ill. - : The pt / caregiver states he / she is on anticoagulants: coumadin. Home medication list is obtained from the patient. - Exposure Risk Screening:: None identified. Vital Signs: 06/03 11:45 BP 143 / 80 RA Sitting (auto/reg); Pulse 87; Resp 20; Temp 96.8(O); Pulse Ox 100% on rs6 R/A; Weight 86 kg / 189.6 lbs (R); Height 5 ft. 2 in. (157.48 cm) (R); Pain 0/10; 12:57 BP 122 / 66 (auto/); hs1 12:59 Pulse 86 MON; Pulse Ox 98% ; hs1 13:12 BP 128 / 66 (auto/); hs1 13:12 Pulse 84 MON; Pulse Ox 98% ; hs1 13:27 BP 133 / 72 (auto/); hs1 13:27 Pulse 82 MON; Pulse Ox 94% ; hs1 13:42 BP 138 / 78 (auto/); hs1 13:42 Pulse 86 MON; Pulse Ox 97% ; hs1 13:57 BP 141 / 77 (auto/); hs1 13:59 Pulse 80 MON; Pulse Ox 97% ; hs1 14:12 BP 145 / 80 (auto/); hs1 14:12 Pulse 84 MON; Pulse Ox 99% ; hs1 14:42 BP 130 / 68 (auto/); hs1 14:42 Pulse 80 MON; Resp 18; Temp 98.0(TE); Pulse Ox 98% ; Pain 0/10; hs1 11:45 Body Mass Index 34.68 (86.00 kg, 157.48 cm) rs6 MDM: 11:57 ECG WITH READING ER PHYS+CARDIAG ordered. EDMS 11:59 IV Saline Lock ordered. ml 11:59 Business Process Coordinator/Pulse Ox/q 15 min VS ordered. ml 11:59 Chest, 1 View Ordered. EDMS 11:59 CBC with Diff Ordered. EDMS 11:59 MED Profile Ordered. EDMS 11:59 CIP Ordered. EDMS 11:59 Troponin Ordered. EDMS 11:59 BNP Ordered. EDMS 13:15 Albuterol-Ipratropium 3 ml Inhalation once ordered. br1 13:15 Call Respiratory ordered. br1 13:17 -Influenza A&B Rapid Antigen - Nose Ordered. EDMS 13:20 Call Respiratory complete. lbd 13:57 Financial registration complete. pm4 14:23 CBC with Diff Reviewed. br1 14:23 MED Profile Reviewed. br1 14:23 BNP Reviewed. br1 14:23 CIP Reviewed. br1 14:23 Troponin Reviewed. br1 14:23 -Influenza A&B Rapid Antigen - Nose Reviewed. br1 14:23 Chest, 1 View Reviewed. br1 14:25 Ambulate Patient wth Pulse Oximetry ordered. br1 14:36 Ventolin Inhaler 2 puffs Inhalation once ordered. br1 14:50 [facility] Payment Agreement was scanned into avandeo and attached to record. pm4 15:10 T-Sheet-- Draft Copy was scanned into avandeo and attached to record. gb 06/04 09:11 ECG/EKG was scanned into avandeo and attached to record. gb Administered Medications: 06/03 13:33 Drug: Albuterol-Ipratropium 3 ml [ipratropium-albuterol 0.5 mg-3 mg(2.5 mg base)/3 mL ac1 nebulization soln (3 mL)] Route: Inhalation; 13:36 Follow up: bs-clear, rosa m procedure well ac1 14:45 Drug: Ventolin 2 puffs [Ventolin HFA 90 mcg/actuation aerosol inhaler (2 puffs)] Route: sd7 Inhalation; Signatures: Dispatcher [employer] EDMS Mike Edwards MD MD ml Daly, Linda, Grocery Clerk Stocking Unit lbd Michelle Huynh, Reg Reg gb Babak Koehler, RN RN dy Jonathan Alonso MD MD br1 Karie Lucas RN RN hs1 Darrel Wallace, Reg Reg pm4 Gaye Sprague RT ac1 Tori Ward RT sd7 The chart was reviewed and I authenticate all verbal orders and agree with the evaluation and treatment provided.Attachments: 14:50 [facility] Payment Agreement pm4 15:10 T-Sheet-- Draft Copy gb 06/04 09:11 ECG/EKG gb Chart Complete MTDD
--- NOTE | 2016-06-05 15:54 | EDDOCDS ---
Nurse's Notes [facility] Name: Kristofer Madrid Age: 45 yrs Sex: Male : 1970 Arrival Date: 06/03/2016 Time: 11:43 Bed 4 Private MD: Kush Nam P Diagnosis: Acute upper respiratory infection, unspecified Presentation: 06/03 11:52 Presenting complaint: Patient states: treated for pneumonia 3 weeks ago. unsure of dy course of antibiotics. over the last 2 weeks has gotten progressively more SOB. Adult Sepsis Screening: The patient does not have new or worsening altered mentation. Patient's respiratory rate is less than 22. Systolic blood pressure is greater than 100. Patient has a qSOFA score of 0- Negative Sepsis Screen. Suicide/Homicide risk assessment- the patient denies having any suicidal and/or homicidal ideations and does not present with any other emotional, behavioral or mental health complaints. Status: Patient is not a furniture servicer or dependent. Transition of care: patient was not received from another setting of care. 11:52 Acuity: SRINIVAS Level 2 dy 11:52 Method Of Arrival: Walkin/Carried/Asstd dy Triage Assessment: 11:55 General: Appears in no apparent distress. Pain: Denies pain. HIV screening NA for this dy visit Offered previously. Respiratory: Onset: The symptoms/episode began/occurred gradually. Historical: - Allergies: Latex; QUINOLONES; SUCCINYLCHOLINE; - Home Meds: 1. Advil PM 200-38 mg oral tab 2 tab 2. atorvastatin 40 mg oral tab 1 tab once daily 3. calcium gummies 250-100-500 mg 1 gummy DIRECTED 4. citalopram 10 mg Oral tab 1 tab once daily 5. hydrocodone-acetaminophen 5-325 mg Oral tab 1 tab every 4-6 hours 6. Lantus 100 unit/mL Sub-Q soln 30 unit daily 7. levothyroxine 200 mcg Oral tab 1 tab once daily 8. metoprolol tartrate 25 mg Oral tab 1 tab 2 times per day 9. ondansetron HCl 4 mg Oral tab 1 tabs 2 times per day as needed 10. pantoprazole 40 mg oral tab 1 tab once daily 11. Renvela 800 mg oral tab 3 times per day 4 tabs with meal, 2 tabs with snacks 12. Sensipar 30 mg oral tab once daily 13. trazodone 50 mg Oral tab 1 tab nightly 14. vancomycin 1 G intravenous solr 3 days a weel post dialysis 15. warfarin 6 mg Oral tab once daily up to 2 tabs daily - PMHx: Anxiety; CAD; CHF; Depression; Diabetes - IDDM: controlled; end stage renal failure; GERD; High Cholesterol; Hypertension; Sleep Apnea w/ CPAP; Thyroid problem; Votter's syndrome; - PSHx: multiple fistula formations with reversals; Ankle Arthroplasty, Right; Bowel resection; perforated anus; Aortic Valve Replacement, Mechanical; Mitral Valve Repair; - Social history: Smoking status: Patient states was never smoker of tobacco. No barriers to communication noted, The patient speaks fluent Armenian, Speaks appropriately for age. - Family history: No immediate family members are acutely ill. - : The pt / caregiver states he / she is on anticoagulants: coumadin. Home medication list is obtained from the patient. - Exposure Risk Screening:: None identified. Screenin:53 Screening information is obtained from the patient. Fall risk: No risks identified. hs1 Assistance ADL's: requires no assistance with activities of daily living. Abuse/DV Screen: The patient / caregiver reports he/she is: not in a situation that causes fear, pain or injury. Nutritional screening: No deficits noted. Advance Directives: There is no active DNR order. home support is adequate. Assessment: 12:34 General: Appears in no apparent distress, comfortable, Behavior is appropriate for age, hs1 cooperative. Pain: Denies pain. Cardiovascular: Rhythm is sinus rhythm No ectopy. Cardiovascular: Capillary refill < 3 seconds Chest pain is denied. Respiratory: Airway is patent Respiratory effort is even, unlabored, Breath sounds are clear bilaterally. Reports shortness of breath on exertion. Derm: Skin is pink, warm & dry. normal. 13:45 General: Appears in no apparent distress, comfortable, Behavior is appropriate for age, hs1 cooperative. Pain: Denies pain. Cardiovascular: Rhythm is sinus rhythm No ectopy. Respiratory: Airway is patent Respiratory effort is even, unlabored, Breath sounds are clear bilaterally. Respiratory: Reports shortness of breath on exertion. Derm: Skin is pink, warm & dry. normal. 14:37 General: Ambulated patient at this time without any decrease in SPO2. Patient states hs1 feels like he is SOB and slows down while walking. Pt HR does increase mildly from 87 to 98. Pt vitals monitored after with decrease in HR noted back to 87 within 1 minute. No needs noted after walking and patient continues to deny chest pain. . Vital Signs: 11:45 BP 143 / 80 RA Sitting (auto/reg); Pulse 87; Resp 20; Temp 96.8(O); Pulse Ox 100% on rs6 R/A; Weight 86 kg (R); Height 5 ft. 2 in. (157.48 cm) (R); Pain 0/10; 12:57 BP 122 / 66 (auto/); hs1 12:59 Pulse 86 MON; Pulse Ox 98% ; hs1 13:12 BP 128 / 66 (auto/); hs1 13:12 Pulse 84 MON; Pulse Ox 98% ; hs1 13:27 BP 133 / 72 (auto/); hs1 13:27 Pulse 82 MON; Pulse Ox 94% ; hs1 13:42 BP 138 / 78 (auto/); hs1 13:42 Pulse 86 MON; Pulse Ox 97% ; hs1 13:57 BP 141 / 77 (auto/); hs1 13:59 Pulse 80 MON; Pulse Ox 97% ; hs1 14:12 BP 145 / 80 (auto/); hs1 14:12 Pulse 84 MON; Pulse Ox 99% ; hs1 14:42 BP 130 / 68 (auto/); hs1 14:42 Pulse 80 MON; Resp 18; Temp 98.0(TE); Pulse Ox 98% ; Pain 0/10; hs1 11:45 Body Mass Index 34.68 (86.00 kg, 157.48 cm) rs6 Vitals: 11:45 Log In Time: June 03, 2016 at 11:40. RN notified that patient meets Red Flag rs6 criteria. ED Course: 11:44 Patient visited by Suzie Stewart PCA. rs6 11:44 Patient moved to Waiting rs6 11:45 Kush Nam is Private Physician. rs6 11:47 Patient visited by Suzie Stewart PCA. rs6 11:47 Patient moved to Pre RCE rs6 11:53 Triage Initiated dy 11:56 Patient moved to 4 dy 12:04 Patient visited by Good Cardenas PCA. jrd 12:04 EKG done. (by ED staff). Reviewed by Jonathan Alonso MD. jrd 12:29 Patient visited by Jf Glez PCA. jlf 12:35 Inserted saline lock: 20 gauge in right upper arm near axilla. Pt tolerated well. hs1 12:42 Jonathan Alonso MD is Attending Physician. br1 13:00 Patient visited by Jf Glez PCA. jlf 13:15 Patient visited by Jonathan Alonso MD. br1 13:15 Chest, 1 View Returned. EDMS 13:46 Patient visited by Karie Lucas, VU. hs1 14:01 Patient visited by Tiki Causey, VU. ttb 14:01 Labs drawn. (by ED staff). ttb 14:23 Patient visited by Jf Glez PCA. jlf 14:36 Patient visited by Jonathan Alonso MD. br1 14:41 Kush Nam is Referral Physician. br1 14:50 [facility] [place] was scanned into [employer] and attached to record. pm4 14:51 Discontinued IV lock intact, bleeding controlled, pressure dressing applied, No hs1 redness/swelling at site. No procedures done that require assistance. 14:53 The patient / caregiver is instructed regarding the plan of care and ED course. hs1 15:10 T-Sheet-- Draft Copy was scanned into [employer] and attached to record. gb 19:13 EKG-ADULT Returned. EDMS 06/04 09:11 ECG/EKG was scanned into [employer] and attached to record. gb Administered Medications: 06/03 13:33 Drug: Albuterol-Ipratropium 3 ml [ipratropium-albuterol 0.5 mg-3 mg(2.5 mg base)/3 mL ac1 nebulization soln (3 mL)] Route: Inhalation; 13:36 Follow up: bs-clear, rosa m procedure well ac1 14:45 Drug: Ventolin 2 puffs [Ventolin HFA 90 mcg/actuation aerosol inhaler (2 puffs)] Route: sd7 Inhalation; Intake: RT: 13:35 Initial Med Neb Given as ordered Patient was instructed and evaluated on procedure. ac1 13:35 Respiratory: Breath sounds are clear bilaterally. ac1 14:45 Initial MDI Given. Patient was instructed and evaluated on procedure Patient tolerated sd7 procedure well without adverse effect Spacer used Number of puffs given: 2. Order Results: Lab Order: CBC with Diff; SPEC'M 06/03/16 12:55 Test: WHITE BLOOD COUNT; Value: 5.3; Range: 4.0-10.0; Units: K/mm3; Status: F Test: RED BLOOD COUNT; Value: 3.06; Range: 4.30-6.10; Abnormal: Below low normal; Units: M/mm3; Status: F Test: HEMOGLOBIN; Value: 8.9; Range: 14.0-18.0; Abnormal: Below low normal; Units: g/dl; Status: F Test: HEMATOCRIT; Value: 29.3; Range: 42.0-52.0; Abnormal: Below low normal; Units: %; Status: F Test: MEAN CORPUSCULAR VOLUME; Value: 95.7; Range: 80.0-96.0; Units: fl; Status: F Test: MEAN CORPUSCULAR HEMOGLOBIN; Value: 29.1; Range: 27.0-33.0; Units: pg; Status: F Test: MEAN CORPUSCULAR HGB CONC; Value: 30.4; Range: 32.0-36.5; Abnormal: Below low normal; Units: g/dl; Status: F Test: RED CELL DISTRIBUTION WIDTH; Value: 18.1; Range: 11.5-14.5; Abnormal: Above high normal; Units: %; Status: F Test: PLATELET COUNT, AUTOMATED; Value: 210; Range: 150-450; Units: k/mm3; Status: F Test: NEUTROPHILS %; Value: 78.9; Range: 36.0-66.0; Abnormal: Above high normal; Units: %; Status: F Test: LYMPH %; Value: 10.5; Range: 24.0-44.0; Abnormal: Below low normal; Units: %; Status: F Test: MONO %; Value: 4.6; Range: 0.0-5.0; Units: %; Status: F Test: EOS %; Value: 2.4; Range: 0.0-3.0; Units: %; Status: F Test: BASO %; Value: 0.7; Range: 0.0-1.0; Units: %; Status: F Test: LARGE UNSTAINED CELL %; Value: 2.8; Range: 0.0-4.0; Units: %; Status: F Test: NEUTROPHILS #; Value: 4.2; Range: 1.8-7.7; Units: K/mm3; Status: F Test: LYMPH #; Value: 0.6; Range: 1.5-4.5; Abnormal: Below low normal; Units: K/mm3; Status: F Test: MONO #; Value: 0.2; Range: 0.0-0.8; Units: K/mm3; Status: F Test: EOS #; Value: 0.1; Range: 0.0-0.50; Units: K/mm3; Status: F Test: BASO #; Value: 0.0; Range: 0.0-0.2; Units: K/mm3; Status: F Test: LARGE UNSTAINED CELL #; Value: 0.2; Range: 0.0-0.4; Units: K/mm3; Status: F Lab Order: MED Profile; SPEC'M 06/03/16 12:55 Test: GLUCOSE, FASTING; Value: 248; Range: 70-105; Abnormal: Above high normal; Units: MG/DL; Status: F Test: BLOOD UREA NITROGEN; Value: 49; Range: 7-18; Abnormal: Above high normal; Units: MG/DL; Status: F Test: CREATININE FOR GFR; Value: 8.30; Range: 0.70-1.30; Abnormal: Above high normal; Units: MG/DL; Status: F Test: GLOMERULAR FILTRATION RATE; Value: 7.5; Range: >60; Abnormal: Below low normal; Status: F Test: SODIUM LEVEL; Value: 137; Range: 136-145; Units: MEQ/L; Status: F Test: POTASSIUM SERUM; Value: 4.3; Range: 3.5-5.1; Units: MEQ/L; Status: F Test: CHLORIDE LEVEL; Value: 100; Range: 98-107; Units: MEQ/L; Status: F Test: CARBON DIOXIDE LEVEL; Value: 22; Range: 21-32; Units: MEQ/L; Status: F Test: ANION GAP; Value: 15; Range: 8-16; Units: MEQ/L; Status: F Test: CALCIUM LEVEL; Value: 8.7; Range: 8.5-10.1; Units: MG/DL; Status: F Test Note: ; Units are mL/min/1.73 m2 Chronic Kidney Disease Staging per NKF: Stage I & II GFR >=60 Normal to Mildly Decreased Stage III GFR 30-59 Moderately Decreased Stage IV GFR 15-29 Severely Decreased Stage V GFR <15 Very Little GFR Left ESRD GFR <15 on CRM MARKETING ANALYST Lab Order: CIP; SPEC'M 06/03/16 12:55 Test: CPK CREATINE PHOSPHOKINASE; Value: 108; Range: 39-308; Units: U/L; Status: F Test: CK-MB VALUE MASS; Value: 3.4; Range: 0.0-3.6; Units: NG/ML; Status: F Test: MB/CK RELATIVE INDEX; Value: 3.14; Range: < OR =4; Status: F Test Note: ; DIAGNOSIS CRITERIA MMB ng/ml Relative Index (RI) NON-AMI < or = 5 N/A RAM ZONE > 5 < or = 4 AMI > 5 > 4 Lab Order: Troponin; SPEC'M 06/03/16 12:55 Test: TROPONIN I; Value: 0.03; Range: < 0.10; Units: NG/ML; Status: F Test Note: ; Troponin I Reference Interval for Assignment Editor LOCI: 99th Percentile= 0.00-0.045 ng/ml Risk Stratification: <= 0.10 ng/ml Decreased Risk for Adverse Clinical Events. 0.10-1.50 ng/ml Increased Risk for Adverse Clinical Events. Evaluation of additional criterion and/or repeat testing in 2-6 hours is suggested to rule out myocardial damage. >= 1.50 ng/ml Indicative of Myocardial Injury. Lab Order: BNP; SPEC'M 06/03/16 12:55 Test: BRAIN NATRIURETIC PEPTIDE; Value: 2730; Range: <100; Abnormal: Above high normal; Units: PG/ML; Status: F Lab Order: -Influenza A&B Rapid Antigen - Nose; SPEC'M 06/03/16 13:27 Test: INFLUENZA A RAPID SCR by ICA; Value: INFLUENZA A RESULTS NEGATIVE; Status: F Test: INFLUENZA A RAPID SCR by ICA; Value: Comments:; Status: F Test: INFLUENZA B RAPID SCR by ICA; Value: INFLUENZA B RESULTS NEGATIVE; Status: F Test Note: ; The Influenza test is a direct rapid immunoassay for the qualitative detection of Influenza viral antigen. Cell culture (Viral Culture) testing should be considered to confirm NEGATIVE results and to assist in detecting other viruses that can provide similar clinical symptoms. Please contact the lab within 24 hours ([phone]) if confirmatory testing is desired. Radiology Order: EKG-ADULT Test: EKG-ADULT REASON FOR EXAMINATION: Shortness of Breath; Stationary ECG Study; [facility] - ED; ; Test Date: 2016-06-03; Pat Name: KRISTOFER OMAK Department:; Room: -; Gender: M Account Support Associate: zohreh; : 1970 Requested By: Mike Edwards; Order Number: [id number] Reading MD: Jessica Fair; Measurements; Intervals [place]; Rate: 84 P: 3; DE: 182 QRS: 21; QRSD: 105 T: 60; QT: 364; QTc: 432; Interpretive Statements; SINUS RHYTHM; NONSPECIFIC T-WAVE ABNORMALITY; SIMILAR 04/21/16; Electronically Signed On 06-03-2016 18:09:58 EST by Jessica Fair; Radiology Order: Chest, 1 View Test: Chest, 1 View REASON FOR EXAMINATION: sob; Clinical: Shortness of breath.; ; Comparison: 04/22/2016.; ; Findings:; Mediastinum is stable again demonstrating cardiomegaly with evidence for prior; sternotomy and valve replacement. Lung franco demonstrate chronic stable; changes. No obvious acute consolidation, effusion, or pneumothorax. Skeletal; structures intact.; ; Impression:; Cardiomegaly and chronic stable changes.; ; ; Signed by; Manfred Whitt MD 06/03/2016 12:29 P; Outcome: 14:41 Discharge ordered by Provider. br1 14:51 Discharge Assessment: Patient awake, alert and oriented x 3. No cognitive and/or hs1 functional deficits noted. Patient verbalized understanding of disposition instructions. patient administered narcotics - no. The following High Risk Discharge criteria are identified: None. Discharged to home ambulatory. Condition: stable. Discharge instructions given to patient, Instructed on discharge instructions, follow up and referral plans. cathodic protection technician in to educate about spacer teaching with albuterol inhaler. Demonstrated understanding of instructions, medications, Pt was receptive of discharge instructions/ teaching. No special radiology studies were completed. Property sent home with patient. 14:53 Patient left the ED. hs1 Signatures: Dispatcher [employer] EDMS Michelle Huynh, Reg Reg gb Gaye Sprague,RT RT ac1 Babak Koehler, RN RN dy Jonathan Alonso MD MD br1 Karie Lucas RN RN hs1 Tiki Causey RN RN ttJf Patel, INFANT CAREGIVER INFANT CAREGIVER jlf Tori Ward,RT RT sd7 Good Cardenas, INFANT CAREGIVER INFANT CAREGIVER d Suzie Stewart, INFANT CAREGIVER INFANT CAREGIVER rs6 Darrel Wallace, Reg Reg pm4 Corrections: (The following items were deleted from the chart) 14:53 14:42 Pulse 80bpm; Monitor; Pulse Ox 98%; hs1 hs1 Chart Complete MTDD
== END 2016-06-03 14:53 | disposition home or self-care (01) ==
LOC: M ED 11:43
DX: J06.9 Acute upper respiratory infection, unspecified (principal); F41.9 Anxiety disorder, unspecified; I50.9 Heart failure, unspecified; I25.10 Atherosclerotic heart disease of native coronary artery without angina pectoris; F32.9 Major depressive disorder, single episode, unspecified; E11.22 Type 2 diabetes mellitus with diabetic chronic kidney disease; I12.0 Hypertensive chronic kidney disease with stage 5 chronic kidney disease or end stage renal disease; N18.6 End stage renal disease; K21.9 Gastro-esophageal reflux disease without esophagitis; E78.00 Pure hypercholesterolemia, unspecified; G47.30 Sleep apnea, unspecified; E07.9 Disorder of thyroid, unspecified; Z96.661 Presence of right artificial ankle joint; Z90.49 Acquired absence of other specified parts of digestive tract; Z95.2 Presence of prosthetic heart valve; Z79.01 Long term (current) use of anticoagulants; Z79.899 Other long term (current) drug therapy; Z91.040 Latex allergy status; Z88.1 Allergy status to other antibiotic agents

== ENCOUNTER 2016-09-17 15:04 | Outpatient (CLI) | payer MEDICARE, MEDICAID ==
[~2016-09-17] VITALS: Ht 157.5 cm; Wt 81.7 kg
[~2016-09-17 15:04] MED LIST changes: +ACIDCAP PO; +CALTCHW6 PO; +CIPR500T89 PO; +COUM1TAB17 PO; +NEPHTAB PO; +ONDA4TAB6 PO; +OXYC-517; +PLAV75TA38 PO; +ROCA0.25 PO
[2016-09-17 16:20] VITALS: BP 110/59
== END 2016-09-18 01:35 ==
LOC: M INFU 15:04 → M MSPAV 16:25 → M INFU 09-18 01:35
PROVIDERS: ATTEND Internal Medicine Nephrology
DX: D50.0 Iron deficiency anemia secondary to blood loss (chronic) (principal)
CPT/HCPCS: 36415; 36430; 86850; 86900; 86901; 86920; P9016

== ENCOUNTER 2016-10-09 14:48 | Inpatient (IN) | payer MEDICARE, MEDICAID ==
[~2016-10-09] VITALS: Ht 157.5 cm; Wt 83.5 kg
[2016-10-09] MEDS ORDERED: SULFAMETHOXAZOLE-TMP (15:04)
[2016-10-09] MEDS ORDERED: CEPH500C (15:04)
[2016-10-09] MEDS ORDERED: TRAZ50TA4 PO (15:04)
[2016-10-09] MEDS ORDERED: ONDANSETRON 4MG/2ML VIAL (J2405) IV ONE (16:30)
[2016-10-09] MEDS ORDERED: MORPHINE 2 MG/ML 1ML SYRINGE IV ONE (16:30)
[2016-10-09 16:34] LABS: BASO % 0.6 % (0.0-1.0); EOS # 0.1 K/mm3 (0.0-0.50); EOS % 1.6 % (0.0-3.0); LARGE UNSTAINED CELL # 0.1 K/mm3 (0.0-0.4); LARGE UNSTAINED CELL % 1.5 % (0.0-4.0); LYMPH # 0.5 K/mm3 (1.5-4.5); LYMPH % 10.5 % (24.0-44.0); MEAN CORPUSCULAR HEMOGLOBIN 29.2 pg (27.0-33.0); MEAN CORPUSCULAR HGB CONC 30.5 g/dl (32.0-36.5); MEAN CORPUSCULAR VOLUME 95.6 fl (80.0-96.0); MONO # 0.2 K/mm3 (0.0-0.8); MONO % 3.8 % (0.0-5.0); NEUTROPHILS # 3.7 K/mm3 (1.8-7.7); PLATELET COUNT, AUTOMATED 180 k/mm3 (150-450); WHITE BLOOD COUNT 4.4 K/mm3 (4.0-10.0)
--- NOTE | 2016-10-09 16:45 | REP ---
Clinical: Dyspnea. Comparison: 06/03/2016. Findings: Evidence of prior sternotomy and aortic valve replacement. Chronic cardiomegaly is appreciated. Lung franco demonstrate chronic-appearing changes including tenting of the right diaphragmatic surface and linear fibroatelectatic changes in the right lower lung zone. No obvious acute consolidation, effusion, or pneumothorax. Skeletal structures intact. Impression: Stable chronic changes. No obvious acute cardiopulmonary process. Signed by Manfred Whitt MD 10/09/2016 04:36 P
[2016-10-09] MEDS ORDERED: WARFARIN SOD 5 MG TAB PO SCH ×2 (17:00)
[2016-10-09 17:32] LABS: ALBUMIN 3.9 GM/DL (3.2-5.2); ALBUMIN/GLOBULIN RATIO 0.83 (1.00-1.93); BILIRUBIN,DIRECT 0.5 MG/DL (0.0-0.2); BILIRUBIN,TOTAL 1.8 MG/DL (0.2-1.0); CALCIUM LEVEL 9.5 MG/DL (8.5-10.1); CREATININE FOR GFR 5.77 MG/DL (0.70-1.30); GLOMERULAR FILTRATION RATE 11.4 (>60); POTASSIUM SERUM 4.7 MEQ/L (3.5-5.1); THYROXINE (T4) 8.6 UG/DL (4.5-12.0); TOTAL PROTEIN 8.6 GM/DL (6.4-8.2)
[2016-10-09 17:35] LABS: INR 1.76
[2016-10-09 17:48] LABS: ERYTHROCYTE SEDIMENTATION RATE 59 mm/hr (0-15)
[2016-10-09 18:42] LABS: PHOSPHORUS LEVEL 5.1 MG/DL (2.5-4.9)
[2016-10-09] MEDS ORDERED: ACETAMINOPHEN TAB 650MG DOSE (2X325MG) PO PRN (19:30)
--- NOTE | 2016-10-09 19:30 | ECGEPIP ---
Stationary ECG Study [facility] - ED Test Date: 2016-10-09 Pat Name: BOOGIE MONTERO Department: Room: - Gender: M Appeals Analyst: ALEJANDRA : 1970 Requested By: Mike Edwards Order Number: [id number] Reading MD: Yuan Pierce Measurements Intervals [place] Rate: 87 P: 3 VT: 197 QRS: 27 QRSD: 109 T: 53 QT: 376 QTc: 453 Interpretive Statements SINUS RHYTHM Electronically Signed On 10-09-2016 19:29:43 EDT by Yuan Pierce
[2016-10-09] MEDS ORDERED: BISACODYL 10 MG SUPP PR PRN (20:00)
[2016-10-09] MEDS ORDERED: PERCOCET 5MG/325MG TAB PO PRN (20:00)
[2016-10-09] MEDS: MORPHINE 2 MG/ML 1ML SYRINGE IV PRN (20:26)
[2016-10-09] MEDS ORDERED: GLUCAGON FOR INJ 1 MG VIAL (J1610) SC PRN (21:00)
[2016-10-09] MEDS ORDERED: MORPHINE 2 MG/ML 1ML SYRINGE IV PRN (21:00)
[2016-10-09] MEDS ORDERED: traZODone 50 MG TAB PO SCH (21:00)
[2016-10-09] MEDS ORDERED: DEXTROSE 50% 50 ML SYRINGE IV PRN (21:00)
[2016-10-09] MEDS ORDERED: GLUCOSE 4 GM CHEW TABLET PO PRN (21:00)
[2016-10-09 21:15] VITALS: BP 118/79
[2016-10-09] MEDS ORDERED: LEVO200T4 PO (21:18)
[2016-10-09] MEDS ORDERED: DRIS50002 PO (21:19)
[2016-10-09] MEDS: CitaloPRAM (CeleXA) 10 MG TABLET PO SCH (21:55)
[2016-10-09] MEDS: SENOKOT S TAB PO SCH (21:55)
[2016-10-09] MEDS: CINACALCET 30 MG TAB (SENSIPAR) PO SCH (21:57)
[2016-10-09] MEDS: HumaLOG INSULIN (NovoLOG) PER UNIT SC SCH (21:57)
[2016-10-09] MEDS: LEVOTHYROXINE 0.1 MG TAB (100 MCG) PO SCH (22:00)
[2016-10-09] MEDS: zolPIDEM TARTRATE 5 MG TAB PO PRN (22:00)
[2016-10-10] MEDS ORDERED: SODIUM THIOSULFATE (25%) 12.5 GM/50 ML VIAL IV SCH (00:15)
[2016-10-10 06:00] VITALS: BP 121/78
[2016-10-10] MEDS ORDERED: diphenhydrAMINE 25 MG CAP PO SCH (06:00)
[2016-10-10 06:10] LABS: INR 1.86
[2016-10-10] MEDS: PERCOCET 5MG/325MG TAB PO PRN ×3 (06:20→21:48)
[2016-10-10 06:31] LABS: BASO % 0.9 % (0.0-1.0); EOS # 0.2 K/mm3 (0.0-0.50); EOS % 3.3 % (0.0-3.0); LARGE UNSTAINED CELL # 0.1 K/mm3 (0.0-0.4); LARGE UNSTAINED CELL % 2.1 % (0.0-4.0); LYMPH # 0.8 K/mm3 (1.5-4.5); LYMPH % 13.9 % (24.0-44.0); MEAN CORPUSCULAR HEMOGLOBIN 29.5 pg (27.0-33.0); MEAN CORPUSCULAR HGB CONC 30.8 g/dl (32.0-36.5); MEAN CORPUSCULAR VOLUME 95.8 fl (80.0-96.0); MONO # 0.2 K/mm3 (0.0-0.8); MONO % 4.4 % (0.0-5.0); NEUTROPHILS # 3.6 K/mm3 (1.8-7.7); NEUTROPHILS % 75.4 % (36.0-66.0); PLATELET COUNT, AUTOMATED 182 k/mm3 (150-450); WHITE BLOOD COUNT 4.8 K/mm3 (4.0-10.0)
[2016-10-10 06:36] LABS: ALBUMIN 3.4 GM/DL (3.2-5.2); CALCIUM LEVEL 8.8 MG/DL (8.5-10.1); CREATININE FOR GFR 6.51 MG/DL (0.70-1.30); GLOMERULAR FILTRATION RATE 9.9 (>60); POTASSIUM SERUM 4.5 MEQ/L (3.5-5.1)
[2016-10-10 07:09] LABS: PHOSPHORUS LEVEL 7.1 MG/DL (2.5-4.9)
--- NOTE | 2016-10-10 07:59 | CR ---
DATE OF CONSULTATION: 10/09/2016 REQUESTING PHYSICIAN: Dr. Timoteo Antonio CONSULTING PHYSICIAN: Dr. Forrest REASON FOR CONSULTATION: Management of end-stage renal disease and skin rash. CHIEF COMPLAINT: The patient presented to the emergency room because of feeling very weak, tired, severe pain in the bilateral lower extremities along with rash. HISTORY OF THE PRESENT ILLNESS: Mr. Kristofer Madrid is a 45-year-old male with a past medical history of end-stage renal disease, on hemodialysis every Wednesday, , Wednesday. He is well known to nephrology service from multiple previous admissions and from outpatient dialysis center. He has multiple comorbidities as mentioned below. He presented to the emergency room today in the afternoon because of feeling weak and tired. He also complained of a palpable rash in the bilateral lower extremities, which was very tender. The patient reports that he was on oral antibiotics for a history of methicillin-resistant Staphylococcus aureus (MRSA) wound infections of arteriovenous (AV) graft. He reports that the antibiotics were recently stopped because he had a skin rash that was not resolving and despite stopping the antibiotics, his lower extremity rash got worse and is very painful. The patient was given a dose of morphine in the emergency room. I was called by the emergency room (ER) physician to evaluate the patient's painful rash. The patient otherwise denies any fever, chills, rigors, headache, nausea, vomiting or any active wound on the body at this time. PAST MEDICAL HISTORY: The patient has a past medical history of congenital VATER anomalies, history of coronary artery disease, depression, insulin-dependent diabetes mellitus, end-stage renal disease, on hemodialysis Wednesday, , Wednesday, gastroesophageal reflux disease, hypertension, obstructive sleep apnea, on anticoagulation because of prosthetic aortic valve, mitral valve repair and hypothyroidism. PAST SURGICAL HISTORY: Multiple AV graft formations and excisions because of clotting and infections, history of ankle arthroplasty status post aortic valve replacement, status post mitral valve repair, status post anorectal surgeries because of VATER anomalies. ALLERGIES: He is allergic to LATEX, LEVAQUIN, SUCCINYLCHOLINE and TRAZODONE. FAMILY HISTORY: No significant family history of end-stage renal disease requiring hemodialysis. SOCIAL HISTORY: The patient denies any illicit drug abuse, alcohol abuse or smoking. The patient lives alone. 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 REVIEW OF SYSTEMS: GENERAL: The patient denies any fever, chills, or rigors, but he reported he felt very weak. EYES: He denies any blurry vision or double vision. ENT: He denies any dysphagia, odynophagia or ear discharge. CARDIOVASCULAR: He reports a history of aortic valve replacement but otherwise he denies any chest pain or palpitations. RESPIRATORY: He denies any cough, wheezing or shortness of breath. GASTROINTESTINAL (GI): He denies any pain in the abdomen, constipation or diarrhea. He has a history of VATER anomalies and a history of anorectal surgeries in the past. MUSCULOSKELETAL: The patient reports lower extremity pain. CENTRAL NERVOUS SYSTEM: He denies any history of strokes or seizures. PSYCHIATRIC: The patient has a history of depression. HEMATOLOGIC/ONCOLOGIC: The patient has a history of recurrent anemia requiring blood transfusions. SKIN: The patient reports a rash in the bilateral lower extremities, which is palpable and severely tender. All other review of systems is negative. PHYSICAL EXAMINATION: GENERAL: The patient is awake, alert, oriented times three, sitting in the bed in mild painful distress. VITAL SIGNS: Temperature is 97.3 degrees Fahrenheit, blood pressure is 118/79, pulse is 102, respiratory rate of 18, saturating 97% on room air. INTAKE/OUTPUT: Urine output was not recorded at this time. HEAD AND NECK EXAM: Extraocular muscles intact. Pupils equally round and reactive to light. Mucous membranes are moist. Neck is supple. There is no jugular venous distention (JVD). CARDIOVASCULAR: S1, S2. Mechanical aortic valvular click; otherwise no murmur, rub or gallop. RESPIRATORY: Chest is clear to auscultation bilaterally. Bilateral equal air entry. No rales or rhonchi. ABDOMEN: Soft. Old abdominal surgical scars. No organomegaly. No tenderness. Bowel sounds are positive. EXTREMITIES: The patient has a left AV graft with positive thrill and bruit, and the patient has a palpable bluish purpuric rash in the bilateral lower extremities, which is tender to palpation. SKIN: The patient does not have any other rash in the body apart from his lower extremities, tender, palpable rash. CENTRAL NERVOUS SYSTEM: No focal neurological deficit. Power is 5/5 in all extremities. MUSCULOSKELETAL: The patient has VATER anomalies of his upper extremities, and he has a short stature. PSYCHIATRIC: Normal mood and affect. LAB REVIEW: CBC showed a WBC of 4.4, hemoglobin 8.8, platelets are 180. BMP showed sodium 132, potassium 4.7, chloride 94, bicarbonate 29, BUN 41, creatinine is 5.7, lactic acid is 2, calcium is 9.5, phosphorus is 5.1, albumin is 3.9, TSH is 5.2. Microbiology: Blood cultures are pending. IMAGING: Chest x-ray done today shows stable chronic changes. No acute cardiopulmonary process. CURRENT INPATIENT MEDICATIONS: The patient is on: - Tylenol as needed - bisacodyl as needed - He was on calcitriol, which was stopped by him. - He is on Sensipar 30 mg by mouth twice a day - Plavix 75 mg by mouth daily - insulin Levemir 30 units subcutaneously in the morning and Humalog sliding scale - He is on lanthanum 500 mg by mouth with meals that was started today. - levothyroxine 0.2 mg by mouth daily - Reglan 10 mg IV every 6 hours as needed - morphine 2 mg IV one dose and 2 mg IV every 4 hours as needed for pain - Zofran as needed - oxycodone by mouth as needed for pain - Renvela 1600 mg by mouth three times a day with meals - trazodone 50 mg by mouth nightly - vitamin D was stopped. - warfarin 5 mg by mouth daily - Ambien 5 mg by mouth nightly as needed for insomnia ASSESSMENT: A 45-year-old male with past medical history of end-stage renal disease, on hemodialysis, insulin-dependent diabetes, history of prosthetic aortic valve, currently on Coumadin, and secondary hyperparathyroidism, along with severe hyperphosphatemia, admitted at this time because of severely painful lower extremity rash. Nephrology service following the patient for management of end-stage renal disease and rash. PLAN: 1. Painful rash in the bilateral lower extremities. 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 It is secondary to secondary hyperparathyroidism, high calcium and phosphate product, use of Coumadin and high dose of insulin is a risk factor and the patient is on both of them. I cannot stop the Coumadin in this patient because he has a history of aortic valve replacement. I would have to get in touch with cardiology to see if we have any alternatives available. I have stopped the patient's oral vitamin D. I stopped the calcitriol as well. Continue the Sensipar. I am going to check the parathyroid hormone (PTH) level and try to maintain a PTH of less than 300. Avoid intravenous (IV) iron at this time. For management of phosphorus, in addition to Renvela, I have added lanthanum 500 mg by mouth three times a day with meals. The patient will also get sodium thiosulfate 25 grams IV over 30 minutes with each hemodialysis session in the last hour of hemodialysis. Continue pain medications with morphine, and I will get a wound care consult as well with Dr. John to see if we can do a skin biopsy to confirm the diagnosis of calciphylaxis. 2. End-stage renal disease, on hemodialysis. Tomorrow is the patient's regular day of hemodialysis. We shall do the hemodialysis tomorrow and try to do an ultrafiltration of about 2.5 to 3 liters as tolerated by his blood pressure and patient would get sodium thiosulfate with hemodialysis as well. 3. Secondary hyperparathyroidism. Severely elevated PTH is one of the risk factors for calciphylaxis. However, he should not get vitamin D based medications to lower the PTH level. Continue the Sensipar at this time. I have ordered the PTH level to be tested tomorrow morning. Calcitriol and vitamin D is on hold. 4. Insulin-dependent diabetes. Continue current dose of insulin sliding scale with NovoLog and Levemir. 5. Status post aortic valve replacement. The patient is currently on Coumadin. Coumadin is one of the risk factors for calciphylaxis. I cannot stop it at this time. Continue current dose. However, I would give a minimum dose to keep INR level between 2-3. 6. Hypothyroidism. Continue current dose of levothyroxine 0.2 mcg by mouth daily. 7. Anemia in end-stage renal disease. I would give the patient Aranesp with hemodialysis, but he is not a candidate of IV iron at this time because of worsening of calciphylaxis. If needed, the patient will be given packed red blood cell transfusion if his hemoglobin drops below 8. Thank you for involving us in the care of this patient. We shall be happy to follow the patient along with you tomorrow morning. Plan of care was discussed with the emergency room physician in the evening.
[2016-10-10] MEDS: CINACALCET 30 MG TAB (SENSIPAR) PO SCH ×2 (08:05→21:48)
[2016-10-10] MEDS: SENOKOT S TAB PO SCH ×2 (08:05→21:48)
[2016-10-10] MEDS: LANTHANUM CARBONATE 500 MG CHEW TABLET PO SCH ×3 (08:05→18:11)
[2016-10-10] MEDS: CLOPIDOGREL 75 MG TAB PO SCH (08:06)
[2016-10-10] MEDS: (RENVELA) SEVELAMER **CARBONate** 800 MG TAB PO SCH ×3 (08:06→18:11)
[2016-10-10] MEDS: HumaLOG INSULIN (NovoLOG) PER UNIT SC SCH ×4 (08:06→21:00)
[2016-10-10] MEDS ORDERED: DARBEPOETIN 100 MCG/0.5 ML *DIALYSIS* SYRINGE (J0882) IV SCH (08:15)
[2016-10-10] MEDS ORDERED: LEVEMIR (INSULIN DETEMIR) 1 UNITS/0.01ML SC SCH (09:00)
[2016-10-10] MEDS ORDERED: CALCITRIOL 0.25 MCG CAP (S0169) PO SCH (09:00)
[2016-10-10 09:22] LABS: INR 1.88
[2016-10-10] MEDS ORDERED: SODIUM THIOSULFATE 25 GM in NS 100 ML IV SCH (09:30)
[2016-10-10] MEDS: MORPHINE 2 MG/ML 1ML SYRINGE IV PRN ×2 (09:48→23:58)
[2016-10-10] MEDS: METOCLOPRAMIDE INJ 10MG/2ML VIAL (J2765) IV PRN (12:37)
[2016-10-10] MEDS ORDERED: LIDOCAINE 1% SDV 5 ML VIAL SQ ONE (13:30)
--- NOTE | 2016-10-10 14:08 | HPE ---
DATE OF ADMISSION: 10/09/2016 PRIMARY CARE PROVIDER: Dr. Nam CHIEF COMPLAINT: Feeling generally unwell since about 3 a.m. this morning, increased discoloration and severe pain in both the feet, extending from the ankles downward since this morning, persistent shortness of breath going on off and on for about a month. PAST MEDICAL HISTORY: 1. VATER syndrome with limb defects. 2. End-stage renal disease (ESRD), on hemodialysis for 7 years. 3. 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 Supposed to be on chronic suppressive antibiotic therapy with Keflex and Bactrim. 4. Recent drug rash 1-1/2 weeks ago, when Bactrim and cephalexin were stopped by primary care provider. 5. Acute myocardial infarction in (AMI) June 2016, status post cardiac catheterization. Found to have 90% occlusion of left anterior descending (LAD) and also small amount of occlusions on the other coronary arteries. Placement of drug-eluting stent. 6. Hiatal hernia. 7. Chronic intermittent anal bleed. 8. Diabetes. 9. Severe hyperparathyroidism, status post parathyroidectomy in the past. 10. Hyperphosphatemia. 11. Aortic valve replacement with metallic valve, on Coumadin. 12. History of mitral stenosis, status post mitral valvoplasty. 13. Chronic anemia with recent history of blood transfusion about 1 month ago. 14. Peripheral vascular disease. 15. A 1.5 cm liver lesion, needs followup CT scan. 16. 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 17. Obstructive sleep apnea. 18. Hypothyroidism. 19. Depression. HISTORY OF PRESENT ILLNESS: This is a 45-year-old male who has been having off and on shortness of breath for the past 1 month. He had severe anemia one month ago and was transfused 1 unit of blood. He also had been running above his dry weight; however, yesterday in his routine hemodialysis 5 liters were removed, and after dialysis he was only about 0.2 liters above his dry weight. This morning, he woke up at around 3 a.m. feeling generalized unwell. He checked his sugar, which was over 300. He went to sleep and woke up again at 8 o'clock, checked his sugar again. It was still running over 300. He took his routine insulin. Continued to feel generalized sick and also noticed increased bluish-purplish discoloration of both his feet, extending below the ankles, along with increased pain in both the feet with sensation of burning and pin pricks. The pain was not improving, and the feet also felt cold and bluish. Overall he continued to feel sick so came to the emergency room for evaluation. Patient, as noted above, was supposed to be on chronic antibiotic suppressive therapy for his incompletely removed infected graft from the right lower extremity; however, the antibiotics were stopped 1-1/2 weeks ago because he developed a drug rash. In the emergency department (ED) he had a chest x-ray done, which did not show any obvious cardiopulmonary process. There were chronic, stable changes. He continued to complain of severe pain in both the legs. He had a Doppler study done in the ED, which showed presence of flow. His pain responded to morphine; however, as soon as the morphine wore off, he again continued to complain of pain. He also complained of intermittent anal bleeding and a sensation of tightness around the anal region for the past 2 months. Patient had esophagogastroduodenoscopy (EGD) and colonoscopy done last year by Dr. 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 He was evaluated by shoe cementer in the ED, and he was noted to have some papules also on his feet with some blackish discoloration, which was felt could be related to calciphylaxis; however, a skin biopsy is required for definitive diagnosis. The hospitalist service was consulted for admission for severe pain in the legs, possible calciphylaxis, and generalized malaise and fatigue with possible underlying infection. PAST SURGICAL HISTORY: 1. Aortic valve replacement. 2. Mitral valvoplasty. 3. 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 4. Multiple AV graft surgeries, first on the left forearm, followed by right forearm, then in right thigh and most recent one in the left thigh. 5. Removal of infected graft from the right thigh. 6. Coronary artery stents. 7. Presence of partial kidney at ; however, current CT scan shows absence of right kidney and only presence of left atrophic kidney. 8. History of ankle arthroplasty. 9. History of other anal rectal surgeries for VATER abnormalities. ALLERGIES: Latex, LEVOFLOXACIN, SUCCINYL, CHOLINE and TRAZODONE. HOME MEDICATIONS: - calcitriol 1.25 mcg three times per week with dialysis - Sensipar 30 mg twice a day - citalopram 10 mg at bedtime - Plavix 75 mg daily - Lantus 30 units daily - Synthroid 200 mcg daily - nitroglycerine as needed - pantoprazole 40 mg at bedtime - Renvela 1600 mg with meals - trazodone 50 mg daily at bedtime - Nephrovite one tablet by mouth daily - Coumadin 5 mg daily - Ambien 5 mg at bedtime REVIEW OF SYSTEMS: All 10-point review of systems are negative except those mentioned in history of present illness (HPI). SOCIAL HISTORY: Patient does not drink, abuse alcohol, or use recreational drugs. PHYSICAL EXAMINATION: VITAL SIGNS: Temperature 97, pulse 100, respiratory rate 18, blood pressure 123/66, pulse oximetry 96% in room air GENERAL: Patient awake, alert, oriented times three, sitting up in bed in no acute distress. HEENT: Normocephalic, atraumatic. Moist mucous membranes. Anicteric eyes. CHEST: Clear to auscultation. CARDIOVASCULAR: S1, S2, regular. There is no murmur, rub, or gallop. There is a metallic click heard in the aortic area. ABDOMEN: Obese, soft, nontender. Bowel sounds present. EXTREMITIES: No edema. Feet are cold with petechial rash and bluish discoloration. There are also some areas of papules with blackish scabs. SKIN: There are generalized papular eruption over the upper extremities, back, as well as other parts of the lower extremities. LABORATORY DATA: WBC 4.4, hemoglobin 8.8, platelets 180. Sodium 132, potassium 4.7, chloride 94, bicarbonate 29, BUN 41, creatinine 5.7, glucose 201, calcium 9.5, phosphorus 5.1. Total bilirubin 1.8, direct 0.5, AST/ALT normal. CRP 5.1. Total protein 8.6. TSH 5.27, free T4 is normal. Blood cultures have been ordered. Chest x-ray negative. ASSESSMENT AND PLAN: This is a 45-year-old male with multiple medical comorbidities, admitted for severe bilateral feet pain, possibly related to either poor circulation, peripheral vascular disease versus calciphylaxis and generalized malaise and feeling unwell, to rule out underlying bacteremia and infection. PLAN: 1. Generalized malaise and sensation of feeling unwell. Patient does have a source of chronic infection from the partially retained infected graft in the right lower extremity. Patient was supposed to be on chronic antibiotic suppressive therapy, which was stopped 1-1/2 weeks ago, so patient may have onset of underlying bacteremia and infection. Will check blood cultures; however, at present the patient is not febrile, and white blood cells (WBC) are not elevated, so will not start any antibiotics. 2. Severe bilateral feet pain and discoloration. Patient most probably has underlying peripheral vascular disease and poor circulation, as he is a bad vasculopath as well as has had multiple graft surgeries in both the thighs; however, in view of his history of very high phosphorus levels and secondary hyperparathyroidism, he is also a candidate for underlying calciphylaxis. There are some lesions which do look like the beginnings of calciphylaxis; however, will need a skin biopsy to confirm it. Would try to contact Dr. John from wound care or general surgery tomorrow to see if a skin biopsy can be arranged. 3. End-stage renal disease (ESRD). Will continue with hemodialysis on Wednesday, , Wednesday schedule due tomorrow. 4. Shortness of breath. Patient looks euvolemic at this point, though is a little anemic. Will consider blood transfusion. Patient may benefit from reduction of his dry weight further. 5. Diabetes. Will continue with Levemir and Lispro insulin. 6. Depression. Will without with home medications. 7. Hyperphosphatemia. Will continue with secondary hyperparathyroidism. Will continue with Renvela, Sensipar, Calcitriol. 8. Hypothyroidism. Will continue with Synthroid. 9. Gastroesophageal reflux disease and hiatal hernia. Will continue with pantoprazole. 10. Aortic valve replaced status. Will continue with Coumadin. Patient's INR is subtherapeutic. May need increased dosage for 1 or 2 days. 11. Coronary artery disease with recent AMI and placement of drug-eluting stent. Will continue with Plavix. 12. VATER syndrome anomalies with limb anomalies, stable at this point. 13. Recurrent anal bleeding and sensation of spasm around the anus. If patient continues to bleed, will request surgical evaluation. Patient has had anal reconstruction at for his imperforate anus and from his Radha anomalies. However, had a recent colonoscopy in 2016, when the reconstruction site looked okay. 14. Deep vein thrombosis (DVT) prophylaxis. Patient is on Coumadin. 15. Gastrointestinal (GI) prophylaxis is on in place.
--- NOTE | 2016-10-10 14:40 | IPNPDOC ---
Text Note Date of Service The patient was seen on 10/10/16. NOTE Subjective: The patient states the LE pain has improved. Rash post abx has resolved. Objective: Vitals: (see below) General: No acute distress, laying comfortably in bed. HEENT: Moist mucous membranes. Neck: No JVD or lymphadenopathy Cardiac: Systolic murmur, regular rate Pulm: Diminished breath sounds at the bases b/l. No wheezing, rhonchi Abd: NT/ND + BS Ext: 1+ pitting edema bilaterally. Right/left thigh scar from prior graft - no erythema. B/l ankle/feet calciphylaxis lesions, mildly tender. Distal pulses intact. Labs (see below) Images: Assessment/Plan 1. BLE pain - 2/2 calcephelaxis - appreciate Dr. Grimm's input. Consulted Dr. Peterson for biopsy. Calcium/Vit D on hold. PTH elevated. Pt receiving sodium thiosulfate with HD. Main control with morphine and percocet. 2. End-stage renal disease- patient getting hemodialysis at this time. 3. Mechanical aortic valve- on Coumadin - subtherapeutic, increased dose today. 4. Hypertension controlled continue home meds.- 5. Hyperlipidemia- continue statin 6. Acute on chronic anemia- h/o multiple transfusions. stable. cont to monitor. Receiving Aranesp by nephro. 7. Hypothyroidism- continue Synthroid 8. Diabetes mellitus- Insulin dependent. Levemir and SSI. 9. RICKI on CPAP 10. GERD on PPI 11. Secondary hyperthyroidism 12. H/o CAD with left main occlusion s/p PCI 13. 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 14. Mitral valve stenosis s/p valvuloplasty 15. Peripheral artery disease 16. RICKI on CPAP 17. H/o VATER syndrome 18. H/o endocarditis DVT prophy: On Coumadin At this point, the patient is being treated for Calciphylaxis. With the patient underlying significant CAD, PAD, vasculopathy, Renal Failure on HD, he certainly has a very poor/guarded prognosis. Patients with calciphylaxis have a very high mortality rate and a short life expectancy. VS,Fishbone, I+O VS, Fishbone, I+O Laboratory Tests 10/09/16 15:27 Red Blood Count 3.03 L, Mean Corpuscular Volume 95.6, Mean Corpuscular Hemoglobin 29.2, Mean Corpuscular Hemoglobin Concent 30.5 L, Red Cell Distribution Width 21.0 H, Neutrophils (%) (Auto) 82.0 H, Lymphocytes (%) (Auto ) 10.5 L, Monocytes (%) (Auto) 3.8, Eosinophils (%) (Auto) 1.6, Basophils (%) ( Auto) 0.6, Neutrophils # (Auto) 3.7, Lymphocytes # (Auto) 0.5 L, Monocytes # ( Auto) 0.2, Eosinophils # (Auto) 0.1, Basophils # (Auto) 0.0 10/09/16 16:44 10/10/16 05:52 Red Blood Count 3.03 L, Mean Corpuscular Volume 95.8, Mean Corpuscular Hemoglobin 29.5, Mean Corpuscular Hemoglobin Concent 30.8 L, Red Cell Distribution Width 21.0 H, Neutrophils (%) (Auto) 75.4 H, Lymphocytes (%) (Auto ) 13.9 L, Monocytes (%) (Auto) 4.4, Eosinophils (%) (Auto) 3.3 H, Basophils (%) (Auto) 0.9, Neutrophils # (Auto) 3.6, Lymphocytes # (Auto) 0.8 L, Monocytes # ( Auto) 0.2, Eosinophils # (Auto) 0.2, Basophils # (Auto) 0.0, Anion Gap 10 Vital Signs Date Time Temp Pulse Resp B/P (MAP) Pulse Ox O2 Delivery O2 Flow Rate FiO2 10/10/16 12:27 18 10/10/16 07:52 BIPAP/CPAP 10/10/16 06:00 97.6 98 121/78 (92) 100 10/09/16 21:30 2.0 I&O- Last 24 Hours up to 6 AM 10/10/16 06:00 Intake Total 240 ml Output Total 0 ml Balance 240 ml JAMES JONES MD October 10, 2016 14:40
[2016-10-10] MEDS ORDERED: WARFARIN SOD 3 MG TAB PO ONE (17:00)
[2016-10-10] MEDS: CitaloPRAM (CeleXA) 10 MG TABLET PO SCH (21:48)
[2016-10-10] MEDS: LEVOTHYROXINE 0.1 MG TAB (100 MCG) PO SCH (21:48)
[2016-10-10 22:00] VITALS: BP 102/56
[2016-10-10] MEDS: zolPIDEM TARTRATE 5 MG TAB PO PRN (22:36)
[2016-10-10] MEDS: diphenhydrAMINE 25 MG CAP PO PRN (23:59)
[2016-10-11] MEDS: PERCOCET 5MG/325MG TAB PO PRN ×4 (03:42→19:50)
[2016-10-11] MEDS: MORPHINE 2 MG/ML 1ML SYRINGE IV PRN ×3 (03:57→22:14)
[2016-10-11 06:00] VITALS: BP 101/55
[2016-10-11 06:27] LABS: INR 2.04; MEAN CORPUSCULAR HEMOGLOBIN 29.7 pg (27.0-33.0); MEAN CORPUSCULAR HGB CONC 30.8 g/dl (32.0-36.5); MEAN CORPUSCULAR VOLUME 96.4 fl (80.0-96.0); PLATELET COUNT, AUTOMATED 168 k/mm3 (150-450); RED CELL DISTRIBUTION WIDTH 21.1 % (11.5-14.5); WHITE BLOOD COUNT 4.3 K/mm3 (4.0-10.0)
[2016-10-11 06:52] LABS: ALBUMIN 3.4 GM/DL (3.2-5.2); CALCIUM LEVEL 8.9 MG/DL (8.5-10.1); CREATININE FOR GFR 4.45 MG/DL (0.70-1.30); GLOMERULAR FILTRATION RATE 15.4 (>60); PHOSPHORUS LEVEL 4.7 MG/DL (2.5-4.9); POTASSIUM SERUM 4.8 MEQ/L (3.5-5.1)
[2016-10-11 07:16] LABS: BASOPHILS 2 % (0-4); EOSINOPHILS 1 % (0-5)
[2016-10-11 07:17] LABS: ANISOCYTOSIS 3+
[2016-10-11] MEDS: LEVEMIR (INSULIN DETEMIR) 1 UNITS/0.01ML SC SCH (07:55)
[2016-10-11] MEDS: (RENVELA) SEVELAMER **CARBONate** 800 MG TAB PO SCH ×3 (07:56→17:40)
[2016-10-11] MEDS: CLOPIDOGREL 75 MG TAB PO SCH (07:56)
[2016-10-11] MEDS: HumaLOG INSULIN (NovoLOG) PER UNIT SC SCH ×4 (07:56→21:00)
[2016-10-11] MEDS: [UNRECOGNIZED DRUG - REMARK] XX SCH (07:57)
[2016-10-11] MEDS: SENOKOT S TAB PO SCH ×2 (07:57→22:13)
[2016-10-11] MEDS: CINACALCET 30 MG TAB (SENSIPAR) PO SCH ×2 (07:57→22:13)
[2016-10-11] MEDS: LANTHANUM CARBONATE 500 MG CHEW TABLET PO SCH ×3 (07:57→17:39)
[2016-10-11 08:03] LABS: ALBUMIN/GLOBULIN RATIO 0.92 (1.00-1.93); BILIRUBIN,DIRECT 0.4 MG/DL (0.0-0.2); BILIRUBIN,TOTAL 1.1 MG/DL (0.2-1.0); TOTAL PROTEIN 7.1 GM/DL (6.4-8.2)
--- NOTE | 2016-10-11 09:35 | IPN ---
DATE: 10/10/2016 SUBJECTIVE: The patient was seen and examined at the bedside today in the morning. He was admitted yesterday. The patient reports that his pain in the bilateral lower extremities is not very well optimized with the Percocet. He is requiring morphine. Today is patient's day of dialysis, and he is pending hemodialysis as well. REVIEW OF SYSTEMS: The patient denies any fever, chills, rigors, headache, nausea, vomiting, chest pain, shortness of breath, pain in abdomen, constipation or diarrhea. The patient reports persistent lower extremity pain, which gets better with morphine injections. The rest of the review of systems is negative. OBJECTIVE: VITAL SIGNS: Temperature is 97.6 degrees Fahrenheit, blood pressure is 121/78, pulse is 98, respiratory rate of 18, saturating 100% on room air. INTAKE/OUTPUT: Urine output is not recorded. Weight on the bed scale is 86 kg. PHYSICAL EXAMINATION: GENERAL: The patient is awake, alert, oriented times three, sitting in bed, in no apparent distress. HEAD AND NECK EXAM: Extraocular muscles intact. Pupils equally round and reactive to light. Mucous membranes are moist. Neck is supple. There is no jugular venous distention (JVD). CARDIOVASCULAR: S1, S2, mechanical aortic valvular click; otherwise no murmur, rub or gallop. RESPIRATORY: Chest is clear to auscultation bilaterally. Bilateral equal air entry. No rales or rhonchi. ABDOMEN: Soft. Positive bowel sounds. Old abdominal surgical scars. No organomegaly. No tenderness. EXTREMITIES: The patient has a left thigh AV graft with positive thrill and bruit. The patient has palpable bluish, tender rash in the bilateral lower extremities. SKIN: No ulcerations at this time. CENTRAL NERVOUS SYSTEM: No focal neurological deficit. Power is 5/5 in all extremities. 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 LAB REVIEW: CBC showed a WBC of 4.8, hemoglobin 8.9, platelets are 182. INR is 1.8. BMP showed sodium 135, potassium 4.5, chloride 97, bicarbonate 28, BUN 50, creatinine is 6.5, calcium is 8.8, ionized calcium is 4.4, phosphorus is 7.1. CURRENT MEDICATIONS: The patient's medications were all reviewed by me. His calcitriol has been stopped. Trazodone has been stopped. His warfarin dose has been changed to 5 mg by mouth daily. There are no other changes in the medications today as compared with yesterday. ASSESSMENT: A 45-year-old male with a past medical history of VATER anomaly, end-stage renal disease, on hemodialysis, insulin-dependent diabetes, history of prosthetic aortic valve replacement, currently on Coumadin. He has secondary hyperparathyroidism and hyperphosphatemia because of end-stage renal disease. The patient is admitted at this time because of severe painful lower extremity palpable rash. 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 PLAN: 1. 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 Continue to hold calcium containing medications, including calcium containing phosphorus binders, oral vitamin D or activated vitamin D for secondary hyperparathyroidism. Continue Renvela. Continue lanthanum. Continue the Sensipar. Parathyroid hormone (PTH) level is pending at this time. The patient will get sodium thiosulfate 25 grams IV with each hemodialysis session. Continue pain medication, morphine as needed. The patient is pending surgical consult and biopsy of the rash to confirm the diagnosis of calciphylaxis. 2. End-stage renal disease, on hemodialysis. Today is the patient's regular day of dialysis. He will be dialyzed according to his regular schedule. 3. Secondary hyperparathyroidism. PTH level is pending. Avoid calcitriol. Avoid vitamin D because of calciphylaxis. Continue Sensipar at this time. 4. Insulin-dependent diabetes. Continue current dose of insulin NovoLog and Levemir. 5. Status post aortic valve replacement. The patient is currently on Coumadin. International normalized ratio (INR) is slightly subtherapeutic. Coumadin dose has been adjusted by primary team, although warfarin is one of the risk factors for calciphylaxis. But because of history of prosthetic aortic valve, we do not have any other option. 6. Hypothyroidism. Continue current dose of levothyroxine 0.25 mcg by mouth daily. 7. Anemia in end-stage renal disease. Hemoglobin is suboptimal. The patient will get a dose of Aranesp 200 mcg IV with hemodialysis today.
[2016-10-11] MEDS: diphenhydrAMINE 25 MG CAP PO PRN ×2 (10:15→15:59)
[2016-10-11] MEDS ORDERED: ISOVUE-370 76% 100ML VIAL (Q9967) As Ordered ONE (14:04)
--- NOTE | 2016-10-11 16:03 | IPNPDOC ---
Text Note Date of Service The patient was seen on 10/11/16. NOTE Subjective: The patient states the LE pain is improving. Objective: Vitals: (see below) General: No acute distress, laying comfortably in bed. HEENT: Moist mucous membranes. Neck: No JVD or lymphadenopathy Cardiac: Systolic murmur, regular rate Pulm: Diminished breath sounds at the bases b/l. No wheezing, rhonchi Abd: NT/ND + BS Ext: 1+ pitting edema bilaterally. Right/left thigh scar from prior graft - no erythema. B/l ankle/feet calciphylaxis lesions, mildly tender. Distal pulses intact. Labs (see below) Images: Assessment/Plan 1. BLE pain - 2/2 calcephelaxis - appreciate Dr. Grimm's input. Consulted Dr. Peterson for biopsy; results pending. Calcium/Vit D on hold. PTH elevated. Pt receiving sodium thiosulfate with HD. Main control with morphine and percocet. 2. End-stage renal disease- patient getting hemodialysis at this time. 3. Mechanical aortic valve- on Coumadin 4. Hypertension controlled continue home meds.- 5. Hyperlipidemia- continue statin 6. Acute on chronic anemia- h/o multiple transfusions. stable. cont to monitor. Receiving Aranesp by nephro. 7. Hypothyroidism- continue Synthroid 8. Diabetes mellitus- Insulin dependent. Levemir and SSI. 9. RICKI on CPAP 10. GERD on PPI 11. Secondary hyperthyroidism 12. H/o CAD with left main occlusion s/p PCI 13. 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 14. Mitral valve stenosis s/p valvuloplasty 15. Peripheral artery disease. CTA LE to r/o severe occlusion. 16. 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 With the patient underlying significant CAD, PAD, vasculopathy, Renal Failure on HD, he certainly has a very poor/guarded prognosis. Patients with calciphylaxis have a very high mortality rate and a short life expectancy. VS,Fishbone, I+O VS, Fishbone, I+O Laboratory Tests 10/11/16 06:07 Red Blood Count 3.08 L, Mean Corpuscular Volume 96.4 H, Mean Corpuscular Hemoglobin 29.7, Mean Corpuscular Hemoglobin Concent 30.8 L, Red Cell Distribution Width 21.1 H, Anion Gap 10 Vital Signs Date Time Temp Pulse Resp B/P (MAP) Pulse Ox O2 Delivery O2 Flow Rate FiO2 10/11/16 15:59 18 10/11/16 10:52 BIPAP/CPAP 10/11/16 06:00 97.4 98 101/55 (70) 95 10/09/16 21:30 2.0 I&O- Last 24 Hours up to 6 AM 10/11/16 06:00 Intake Total 1410 ml Output Total 3500 ml Balance -2090 ml JAMES JONES MD October 11, 2016 16:03
[2016-10-11] MEDS ORDERED: LIDOCAINE 1% MDV 20ML VIAL SC ONE (16:30)
[2016-10-11] MEDS: WARFARIN SOD 5 MG TAB PO SCH (17:40)
--- NOTE | 2016-10-11 18:01 | IPN ---
DATE: 10/11/2016 SUBJECTIVE: The patient was seen and examined at the bedside today morning. The patient got hemodialysis done yesterday. He tolerated the hemodialysis procedure well. He got a dose of sodium thiosulfate with hemodialysis. There were no side effects noted. The patient continues to complain of bilateral foot pain and tenderness. He is otherwise hemodynamically stable. REVIEW OF SYSTEMS: The patient denies any fevers, chills, rigors, headaches, nausea, vomiting, chest pain, shortness of breath, pain abdomen, constipation, or diarrhea. He does report persistent foot pain. Rest of review of systems is negative. OBJECTIVE: VITAL SIGNS: Temperature is 97.4 degrees Fahrenheit, blood pressure 101/55, pulse is 98, respiratory rate of 18, saturating 95% on room air. INTAKE AND OUTPUT: Urine output is not recorded. Ultrafiltration with hemodialysis was 3.5 liters. Weight in the bed scale is 85.7 kg. PHYSICAL EXAMINATION: GENERAL: The patient is awake, alert, oriented times three, sitting on the sofa in no apparent distress. HEAD/NECK: Extraocular muscles intact. Pupils equal, round, and reactive to light. Mucous membranes are moist. Neck is supple. There is no jugular venous distention (JVD). CARDIOVASCULAR: S1, S2. Mechanical aortic valvular click. Otherwise no murmur, rub, or gallop. RESPIRATORY: Chest is clear to auscultation bilaterally. Bilateral equal air entry. No rales or rhonchi. ABDOMEN: Soft. Positive bowel sounds. Old abnormal surgical scars. No organomegaly. No tenderness. EXTREMITIES: The patient has a left thigh AV graft with positive thrill and bruit, and the patient has persistent palpable purpuric rash in the bilateral lower extremities starting from the feet, up to mid calf. 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 SKIN: Rash as mentioned above; otherwise, no ulceration. CENTRAL NERVOUS SYSTEM (DIRECTOR HOUSEKEEPING): No focal neurological deficit. Power is 5/5 in all extremities. LABORATORY DATA: CBC showed a WBC 4.3, hemoglobin 9.1, platelets 168. BMP shows sodium 137, potassium 4.8, chloride 99, bicarbonate 28, BUN 29, creatinine 4.4, calcium 8.9, phosphorus is 4.7. PTH level is still pending. MICROBIOLOGY: Blood cultures are negative after 24 hours. CURRENT MEDICATIONS: The patient's medications were all reviewed by me. His insulin Levemir dose has been changed to 20 units in the morning. There is no change in the medications today as compared with yesterday. ASSESSMENT: A 45-year-old male with past medical history of VATER anomaly, end-stage renal disease, on hemodialysis, insulin-dependent diabetic, history of prosthetic aortic valve replacement, currently on Coumadin, history of secondary hyperparathyroidism and severely resistant hyperphosphatemia because of end-stage renal disease. The patient was admitted at this time because of severely painful lower extremity palpable rash. Nephrology service following the patient for management of end-stage renal disease and tender lower extremity rash which is most likely calciphylaxis. PLAN: 1. Painful rash in the bilateral lower extremities. I am empirically treating the patient as calciphylaxis. All vitamin D or calcium-containing medications are on hold. We are trying to aim for phosphorus level below five. Continue lanthanum and Renvela. Continue Sensipar for hyperparathyroidism. Parathyroid hormone (PTH) level is still pending. Continue sodium thiosulfate with each hemodialysis session. The patient was seen by surgical service. He is pending skin biopsy to confirm the diagnosis. 2. End-stage renal disease on hemodialysis. The patient's regular days are Wednesday, , Wednesday. He was dialyzed according to his regular schedule yesterday. 3. Secondary hyperparathyroidism. Calcitriol has been stopped because of possible calciphylaxis. Continue Sensipar at this time. If needed, Sensipar dose will be increased. 4. Insulin-dependent diabetes. Continue NovoLog. Levemir dose has been decreased by primary team. 5. Status post aortic valve replacement. Continue Coumadin at this time. We cannot change his Coumadin to the newer anticoagulants because of the prosthetic valve. 6. Anemia in end-stage renal disease. The patient's hemoglobin is 9.1 which is suboptimal. He was given a dose of Aranesp 200 mcg intravenous (IV) with hemodialysis yesterday. No need of blood transfusion at this time.
[2016-10-11 22:00] VITALS: BP 106/63
[2016-10-11] MEDS: CitaloPRAM (CeleXA) 10 MG TABLET PO SCH (22:13)
[2016-10-11] MEDS: LEVOTHYROXINE 0.1 MG TAB (100 MCG) PO SCH (22:13)
[2016-10-12] MEDS: PERCOCET 5MG/325MG TAB PO PRN ×4 (01:39→18:13)
[2016-10-12] MEDS: METOCLOPRAMIDE INJ 10MG/2ML VIAL (J2765) IV PRN (01:39)
[2016-10-12 06:00] VITALS: BP 104/57
[2016-10-12] MEDS: HumaLOG INSULIN (NovoLOG) PER UNIT SC SCH ×4 (06:05→21:00)
[2016-10-12] MEDS: CLOPIDOGREL 75 MG TAB PO SCH (06:05)
[2016-10-12] MEDS: LANTHANUM CARBONATE 500 MG CHEW TABLET PO SCH ×3 (06:05→18:11)
[2016-10-12] MEDS: (RENVELA) SEVELAMER **CARBONate** 800 MG TAB PO SCH ×3 (06:05→18:11)
[2016-10-12] MEDS: SENOKOT S TAB PO SCH ×2 (06:05→21:03)
[2016-10-12] MEDS: LEVEMIR (INSULIN DETEMIR) 1 UNITS/0.01ML SC SCH (06:06)
[2016-10-12] MEDS: CINACALCET 30 MG TAB (SENSIPAR) PO SCH ×2 (06:13→21:03)
[2016-10-12 06:26] LABS: BASO % 0.8 % (0.0-1.0); EOS # 0.1 K/mm3 (0.0-0.50); EOS % 2.6 % (0.0-3.0); LARGE UNSTAINED CELL # 0.1 K/mm3 (0.0-0.4); LARGE UNSTAINED CELL % 2.2 % (0.0-4.0); LYMPH # 0.3 K/mm3 (1.5-4.5); LYMPH % 6.4 % (24.0-44.0); MEAN CORPUSCULAR HEMOGLOBIN 30.4 pg (27.0-33.0); MEAN CORPUSCULAR HGB CONC 30.9 g/dl (32.0-36.5); MEAN CORPUSCULAR VOLUME 98.4 fl (80.0-96.0); MONO # 0.3 K/mm3 (0.0-0.8); MONO % 5.9 % (0.0-5.0); NEUTROPHILS # 3.9 K/mm3 (1.8-7.7); NEUTROPHILS % 82.1 % (36.0-66.0); PLATELET COUNT, AUTOMATED 181 k/mm3 (150-450); WHITE BLOOD COUNT 4.8 K/mm3 (4.0-10.0)
[2016-10-12 06:34] LABS: INR 2.33
[2016-10-12 06:38] LABS: ALBUMIN 3.6 GM/DL (3.2-5.2); CALCIUM LEVEL 8.5 MG/DL (8.5-10.1); CREATININE FOR GFR 6.06 MG/DL (0.70-1.30); GLOMERULAR FILTRATION RATE 10.8 (>60); PHOSPHORUS LEVEL 6.4 MG/DL (2.5-4.9)
--- NOTE | 2016-10-12 07:32 | RO ---
DATE OF PROCEDURE: 10/11/2016 PREPROCEDURE DIAGNOSIS: Skin rash lower extremities, evaluate for calciphylaxis. POSTPROCEDURE DIAGNOSIS: Skin rash lower extremities, evaluate for calciphylaxis. PROCEDURE PERFORMED: 4 mm punch biopsy of a lesion of the dorsum of the left foot. SURGEON: Dr. Kaushal Peterson CHANGE CONTROL ANALYST: ANESTHESIA: Local with 1% Xylocaine. INDICATIONS FOR PROCEDURE: The patient is a 45-year-old man who has recently developed a fairly diffuse rash, but primarily located on the lower extremities, including the feet. He is on dialysis and the pricer has expressed concern about the possibility that this represents early calciphylaxis. He has recommended a biopsy. OPERATIVE PROCEDURE: The patient was counseled for the procedure. The dorsum of the left foot was prepped with Betadine and draped sterilely. A roughly 6 mm purple lesion on the dorsum of the foot was selected. This had a more central darker area of discoloration with a value stream coach colored peripheral rim of discoloration. Local anesthesia was achieved with 1% Xylocaine without epinephrine. A 4 mm biopsy punch was used to obtain a biopsy of a portion of this lesion extending from the center out to the normal surrounding skin. The skin edges were gently undermined and the wound approximated with several interrupted simple sutures of #5-0 nylon. The specimen was sent in formalin for permanent pathology. The wound was dressed with a Betadine prep pad, several 4x4s and a wrap of Kerlix to apply some light pressure to the area of the wound. He tolerated the procedure well. [facility] NETWORKD[facility]
[2016-10-12] MEDS: [UNRECOGNIZED DRUG - REMARK] XX SCH (08:00)
[2016-10-12] MEDS: LIDOCAINE 2% JELLY 30 ML TOP SCH ×2 (09:00→21:03)
[2016-10-12] MEDS ORDERED: LEVEMIR (INSULIN DETEMIR) 1 UNITS/0.01ML SC SCH (09:00)
[2016-10-12] MEDS: MORPHINE 2 MG/ML 1ML SYRINGE IV PRN ×2 (11:12→22:51)
[2016-10-12] MEDS: diphenhydrAMINE 25 MG CAP PO PRN ×2 (12:22→18:13)
[2016-10-12] MEDS ORDERED: LIDOCAINE 1% SDV 5 ML VIAL SQ ONE (12:30)
--- NOTE | 2016-10-12 13:22 | IPN ---
DATE OF VISIT: 10/12/2016 Mr. Madrid is seen this morning on his bedside. He has complained of worsening pain in his feet. He underwent skin biopsy of one of these lesions by Dr. Peterson yesterday for possible calciphylaxis. The patient just does not feel well. He reports feeling cold but has no fever. There is no nausea or vomiting. On physical exam, he is sitting in the chair and not in any acute distress. Temperature is 97.8 degrees Fahrenheit, heart rate 92 per minute and respiratory rate 18 per minute. Blood pressure 104/57 mmHg and oxygen saturation 98% on room air. Head is atraumatic. Neck veins are difficult to be assessed. Neck is short but supple. There is no thyroid enlargement. Pupils are equal and reactive to light and sclera is anicteric. Heart sounds are regular with systolic murmur grade 2/6. Lung sounds clear to auscultation bilaterally. Abdomen is soft and nontender. Extremities have no cyanosis or clubbing. 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 Lower extremities have significant edema and some bluish discoloration of his feet. He has his old hemodialysis graft, which is clotted and thrombosed in his right thigh and a new graft left thigh is patent. Today's labs show WBC count 4.8, hemoglobin 9.4 and hematocrit 30.6. Platelets 181. Sodium 134 and potassium 5.0. BUN 45 and creatinine 6.06. Calcium level is 8.5 and phosphorus 6.4. PROBLEMS: 1. End-stage renal disease. Patient is regularly dialyzed on Wednesday, and Wednesday schedule. His last dialysis was done on Wednesday. Next regular dialysis will be done on Wednesday. 2. Bilateral foot pain with cyanosis. Patient is being worked up for possible calciphylaxis. He did have a skin biopsy yesterday and results are pending. He is currently being treated with sodium thiosulfate after dialysis. 3. Bilateral lower extremity edema. Patient has significant edema on lower extremities. At this point, we will going to try to remove fluid and see if that would help. There is no evidence of acute infection. The patient will be taken to hemodialysis later today for ultrafiltration and we will try to remove about 3 liters of fluid as tolerated. 4. Hyponatremia. This is mild and related to end-stage renal disease. No intervention is indicated at this point. It is likely to correct with hemodialysis and ultrafiltration. 5. Hyperphosphatemia. This is a chronic issue and related to dietary noncompliance and hyperparathyroidism. Continue with phosphate binders. Other medications for hyperparathyroid are currently on hold due to possible calciphylaxis. 6. 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 Patient has been on chronic antibiotic therapy. He is not a surgical candidate. We will continue with antibiotic therapy. MTDD
--- NOTE | 2016-10-12 16:01 | IPNPDOC ---
Text Note Date of Service The patient was seen on 10/12/16. NOTE Subjective: Pt has increased swelling in his legs. Going for HD today. Objective: Vitals: (see below) General: No acute distress, laying comfortably in bed. HEENT: Moist mucous membranes. Neck: No JVD or lymphadenopathy Cardiac: Systolic murmur, regular rate Pulm: Diminished breath sounds at the bases b/l. No wheezing, rhonchi Abd: NT/ND + BS Ext: 1+ pitting edema bilaterally. Right thigh scar from prior graft - no erythema. B/l ankle/feet calciphylaxis lesions, mildly tender. Distal pulses intact. Labs (see below) Images: Assessment/Plan 1. BLE pain - 2/2 Calciphylaxis - appreciate Dr. Craig's input. Consulted Dr. Peterson for biopsy. Calcium/Vit D on hold. PTH elevated. Pt receiving sodium thiosulfate with HD. Main control with morphine and percocet. Getting HD today. 2. End-stage renal disease- patient getting hemodialysis at this time. 3. Mechanical aortic valve- on Coumadin 4. Hypertension controlled continue home meds.- 5. Hyperlipidemia- continue statin 6. Acute on chronic anemia- h/o multiple transfusions. stable. cont to monitor. Receiving Aranesp by nephro. 7. Hypothyroidism- continue Synthroid 8. Diabetes mellitus- Insulin dependent. Levemir and SSI. 9. RICKI on CPAP 10. GERD on PPI 11. Secondary hyperthyroidism 12. H/o CAD with left main occlusion s/p PCI 13. 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 Dr. Macias consulted for Abx recommendations. Bld cx negative. 14. Mitral valve stenosis s/p valvuloplasty 15. Peripheral artery disease. CTA LE to negative for severe occlusion. 16. 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 With the patient underlying significant CAD, PAD, vasculopathy, Renal Failure on HD, he certainly has a very poor/guarded prognosis. Patients with calciphylaxis have a very high mortality rate and a short life expectancy. VS,Fishbone, I+O VS, Fishbone, I+O Laboratory Tests 10/12/16 06:11 Red Blood Count 3.11 L, Mean Corpuscular Volume 98.4 H, Mean Corpuscular Hemoglobin 30.4, Mean Corpuscular Hemoglobin Concent 30.9 L, Red Cell Distribution Width 21.0 H, Neutrophils (%) (Auto) 82.1 H, Lymphocytes (%) (Auto ) 6.4 L, Monocytes (%) (Auto) 5.9 H, Eosinophils (%) (Auto) 2.6, Basophils (%) ( Auto) 0.8, Neutrophils # (Auto) 3.9, Lymphocytes # (Auto) 0.3 L, Monocytes # ( Auto) 0.3, Eosinophils # (Auto) 0.1, Basophils # (Auto) 0.0, Anion Gap 12 Vital Signs Date Time Temp Pulse Resp B/P (MAP) Pulse Ox O2 Delivery O2 Flow Rate FiO2 10/12/16 12:54 18 10/12/16 10:32 BIPAP/CPAP 10/12/16 06:00 97.8 93 104/57 (73) 98 10/09/16 21:30 2.0 I&O- Last 24 Hours up to 6 AM 10/12/16 06:00 Intake Total 2280 ml Output Total 400 ml Balance 1880 ml JAMES JONES MD October 12, 2016 16:01
[2016-10-12] MEDS ORDERED: CIPROFLOXACIN 500 MG TAB PO SCH (18:00)
[2016-10-12] MEDS: WARFARIN SOD 5 MG TAB PO SCH (18:12)
[2016-10-12] MEDS ORDERED: predniSONE 10 MG TAB PO SCH (21:00)
[2016-10-12] MEDS: CitaloPRAM (CeleXA) 10 MG TABLET PO SCH (21:03)
[2016-10-12] MEDS: LEVOTHYROXINE 0.1 MG TAB (100 MCG) PO SCH (21:03)
[2016-10-12 22:00] VITALS: BP 99/58
--- NOTE | 2016-10-13 06:42 | IPN ---
DATE: 10/13/2016 CRITICAL CARE NOTE: At 5:30 a.m., 10/13/2016, patient was found unresponsive in the bathroom and a max cart was called. Per RN, patient pressed his button and he had gone to the bathroom alone, closed the door. She said to him that she will return to check his vital signs. 15 minutes later, patient was found unresponsive sitting on the toilet with his head back with no pulse and not breathing. Max cart was activated. Advanced cardiac life support (ACLS) protocol was followed. Pt was ambu-bagged, and attached to a monitor/defibrillator. Family was notified by RN of the patient's cardiac arrest, and advised to come to the hospital as soon as possible. Monitor showed asystole, non-shockable rhythm. CPR was started and continued for 2 minutes. IV access was via a peripheral line on left antecubital fossa, and epinephrine was administered every 5 minutes, and CPR continued until monitor showed sinus bradycardia in the 40's, but no pulse was palpable. Doppler was obtained, and no pulse was heard. CPR was continued, and epinephrine and bicarbonate given. He remained in PEA for 30 minutes despite full support. Patient was pronounced at 6:28 a.m. Family was not present at the patient's passing. Dr. Amanda Mireles, Attending Physician, at 0700am was notified of the events. ETHAN
--- NOTE | 2016-10-13 08:33 | CR ---
DATE OF CONSULTATION: 10/12/2016 REASON FOR CONSULTATION: Rash, probably related to Sulfa or cephalexin. HISTORY OF PRESENT ILLNESS: Kristofer is a 45-year-old gentleman with a history of end-stage renal disease on hemodialysis through a new graft that has been placed in his left thigh. 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 He had multiple infections of his graft in the past, started about 4 to 5 years ago. This most recent infection started around March and involved his graft in his right thigh. The patient was hospitalized in March 2016 with the cultures positive for methicillin resistant Staphylococcus aureus (MRSA) of the right leg dialysis access graft. The patient had a portion of that graft surgically removed and a new one was placed in the left leg. At that point, the infectious disease at [facility] had recommended 6 weeks of IV vancomycin that ended on 05/15/2016. The patient was supposed to continue with oral Bactrim but he did not. The stopped the Bactrim sometime in May. The wound started draining again on the right side. He had recurrent purulent discharge and so he started flushing his graft area with the shower head to try to help with the drainage. When he went back to [facility] on 07/09 he had multiple pathogens, including Morganella, Klebsiella and MRSA. He was under the care of Dr. Dona Candelario and Dr. Alamo. He had more of the graft removed but the surgery could not be completed as the patient had a myocardial infarction. He had a cardiac catheterization and had 90% occlusion of his left main coronary artery. On 07/16, he had a drug eluting stent placed in the left main. On 07/17, he had two separate infected segments of the right thigh graft removed by Dr. Alamo, but small portions could not be safely extracted. He was discharged home on oral ciprofloxacin to finish a total of 6 weeks and then he would be on chronic lifelong therapy for vascular graft infection and recommendation of infectious disease in [facility] was to switch him to Bactrim and Keflex, which he has been on since 08/26. The patient, about a week prior to admission, started not feeling well. He was having some chills and achiness and then developed a rash that was very pruritic. He denied any nausea, vomiting or diarrhea. Then the rash became painful, especially around his feet and toes and since he was not feeling well he came to the emergency room. Since hospitalization, the rash seems to have improved since Bactrim was discontinued, but the vasculitic component on his lower feet has been very painful. He denied having fever, chills, nausea, vomiting or diarrhea. No cough or shortness of breath. His graft is completely healed on the right side and the left thigh graft seems to be working pretty well. PAST MEDICAL HISTORY: Significant for: 1. End-stage renal disease on hemodialysis. 2. VATER syndrome. 3. Multiple failed grafts with multiple infections and this is his last graft available in his left thigh. Graft infection on the right thigh, including MRSA with Klebsiella and Enterobacter, supposed to be on chronic suppressive therapy. 4. Hiatus hernia. 5. Diabetes. 6. Chronic intermittent anal bleed. 7. Hyperphosphatemia. 8. Severe hyperparathyroidism. 9. Aortic valve with metallic valve on Coumadin. 10. History of mitral stenosis, status post mitral valvuloplasty. 11. Chronic anemia with blood transfusion. 12. Peripheral vascular disease. 13. 1.5 cm liver lesion that needed followup CT scan. Patient missed the appointment as he was sick two weeks ago. 14. End stage renal disease on hemodialysis. 15. Obstructive sleep apnea. 16. Hypothyroidism. 17. Depression. PAST SURGICAL HISTORY: 1. Aortic valve replacement. 2. Mitral valvuloplasty. 3. 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 4. Multiple AV graft surgeries and infections. 5. Removal of infected graft of the right thigh with concern of persistent graft that could be infected and therefore the recommendation was life long suppressive therapy. 6. Coronary artery stents. 7. Presence of a partial kidney at . ALLERGIES: LEVOFLOXACIN, SUCCINYLCHOLINE, TRAZODONE. MEDICATIONS: - Levemir 10 units subcutaneous - Lidocaine jelly to feet twice a day - warfarin 5 mg by mouth daily - sodium - diphenhydramine - Plavix 75 mg daily - Aranesp 200 mcg with hemodialysis - Renvela 1600 mg with meals - Fosrenol 500 mg by mouth with meals - insulin - levothyroxine 0.2 mg daily - Senokot two tablets by mouth twice a day - morphine as needed for pain - Celexa 10 mg by mouth at night - Sensipar 30 mg by mouth twice a day - Zolpidem 5 mg by mouth at night - Percocet one tablet by mouth every four hours as needed - Reglan 10 mg IV every six hours as needed - Tylenol 650 mg by mouth every 6 hours as needed LABORATORY DATA: White count is 4.8, hemoglobin 9.4, hematocrit 30.6, platelets 189. ESR is 59, 84% neutrophils, 5% lymphocytes. Sodium 134, potassium 5, chloride 96, bicarbonate 26, BUN 45, creatinine 6, glucose 60, calcium 8.5, phosphorus 6.4, bilirubin 1.1, AST 11, AST 14, alkaline phosphatase 187, albumin 3.6, total protein 6.7. Blood cultures two sets were negative. Skin biopsy is pending IMAGING STUDIES: Chest x-ray shows no acute process, stable chronic changes. PHYSICAL EXAMINATION: VITAL SIGNS: Temperature is 97.4, pulse 86, respirations 14, blood pressure 99/58, oxygen saturation 98% on room air. HEART: Normal S1, S2 with a systolic ejection murmur 2/6 heard at the left upper sternal border. LUNGS: Clear. No wheezes or rhonchi. ABDOMEN: Soft, nontender. EXTREMITIES: No clubbing, cyanosis. 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 Lower extremities have significant edema and bluish discoloration with vasculitic tender lesions, especially on the lower feet that are very tender. He has an old hemodialysis graft, which is thrombosed and has completely healed. A new hemodialysis graft is on the left thigh and is patent and working well. There is no surrounding purulence or infection. There are some lesions on his back as well that are nodular and scabbed. There are multiple erythematous scratch fontana on his legs. IMPRESSION: This is a 45-year-old gentleman with end-stage renal disease on hemodialysis, has had multiple graft infections and currently was supposed to remain on chronic suppressive therapy with Bactrim and Keflex for a polymicrobial infection of his right graft. The patient has developed a rash with what seems to be vasculitis, most likely related to sulfa, but also could be related to Keflex. The patient's antibiotics have been discontinued, but since he needs chronic lifelong therapy , for now we will switch him back to ciprofloxacin, which is what he tolerated for 6 weeks. 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 Lower extremity edema is related probably to all this rash and inflammation. PLAN Patient would benefit from gabapentin to help him with neuropathic pain and the dose I would suggest starting at 300 mg by mouth twice a day. As far as vasculitis, I would suggest treating him with prednisone 30 mg by mouth twice a day as he has significant pruritus as well that is not controlled with Benadryl. Skin biopsy was done on 10/12 and is still pending. Review of the CT of the abdomen done on 07/27 showed a 1.4 cm low-density lesion of the right lobe of the liver. new from prior study and needs followup and therefore liver ultrasound will be ordered. MTDD
--- NOTE | 2016-10-13 09:50 | REP ---
Clinical: Evaluate for peripheral arterial disease. Technique: Axial contrast enhanced imaging using angiographic technique from the level of the aortic arch through the bilateral lower extremities with 100 ml Isovue 370 intravenous contrast material including multiplanar and MIP re-formations. Findings: With respect to the arterial vasculature, extensive partially calcified atheromatous plaques are identified involving the visualized thoracic and abdominal aorta including common iliac arteries. Appropriate enhancement of the celiac access, superior mesenteric artery, inferior mesenteric artery is appreciated along with enhancing left renal artery extending to and atrophic left kidney without significant parenchymal enhancement to suggest appropriate renal function. No right renal artery or right kidney is identified. Evaluation of the bilateral lower extremity arterial vasculature demonstrates mild to moderate mixed atheromatous plaquing through the common femoral arteries to the trifurcation but with otherwise adequate contrast enhancement with three-vessel runoff noted to the bilateral ankles and no significant areas of stenosis or occlusion. The the patient appears to be status post prior bilateral common femoral artery stenting which appears patent on the left and completely occlusive on the right. The visualized lung franco demonstrate pulmonary vascular congestion and interstitial edema along with a small to moderate right pleural effusion and diffuse bilateral ground-glass opacities. Liver demonstrates 2 cm hypodense lesion along the periphery of the right lobe which cannot be further characterized on arterial phase imaging. Spleen, pancreas, collapsed gallbladder, bilateral adrenal glands appear relatively normal. The left kidney as described above appears completely atrophic and without obvious function but with small hypodensities measuring up to 2 cm likely representing cysts. No right kidney or pelvic kidney is identified. The enteric system is without obstruction or acute inflammatory process. Pelvis demonstrates collapsed bladder which cannot be further evaluated. Enlarged prostate gland and seminal vesicles are suggested. Fullness to the soft tissue surrounding the rectum cannot be further evaluated but appears somewhat irregular and may warrant correlation. Calcifications involving the seminal vesicles are noted and consistent with diabetes. Inflammatory stranding within the pelvis is nonspecific and possibly chronic. Subcutaneous infiltration involving the bilateral visualized lower extremities including bilateral inguinal adenopathy is nonspecific but raises the possibility of cellulitis and underlying infectious/inflammatory process. Impression: 1. Arterial vasculature as described above demonstrates moderate to extensive partially calcified atheromatous plaquing throughout the visualized thoracic and abdominal aorta and common iliac arteries with less prominent atheromatous changes involving the external iliac arteries through the lower extremities and trifurcation. Satisfactory enhancement to the bilateral lower extremities with three-vessel runoff noted bilaterally to the ankles. Normal enhancement to the abdominal vasculature including celiac axis, SMA, KARI. 2. Atrophic left kidney with 2 cm hypodensity suggesting cysts. 3. Presumed inflammatory stranding in the subcutaneous tissues of the visualized lower extremities with bilateral inguinal adenopathy suggests cellulitis and possible underlying infectious/inflammatory process. 4. Chronic changes and postsurgical changes involving the pelvis and lower extremities as described above. 5. Soft tissue fullness surrounds the rectum and may warrant followup and physical examination. Signed by Manfred Whitt MD 10/13/2016 09:42 A
[2016-10-15] MEDS ORDERED: VITAMIN D 50,000 UNITS CAPSULE (ERGOCALCIFEROL 1.25MG) PO SCH (09:00)
--- NOTE | 2016-10-16 23:32 | DS.PDOC ---
Discharge Summary General Date of Admission October 09, 2016 at 19:56 Date of Discharge 10/13/16 Attending Physician: JAMES JONES MD Specialist/Consultants Involve: MAGED ALVARADO MD Discharge Summary PROCEDURES PERFORMED DURING STAY: (Hemodialysis, skin biopsy]. ADMITTING DIAGNOSES: 1. Calciphylaxis 2. Rash from Bactrim 3. ESRD on Hemodialysis 4. Mechanical aortic valve- on Coumadin 5. Hypertension 6. Acute on chronic anemia- h/o multiple transfusions. 7. Hypothyroidism 8. Diabetes mellitus- Insulin dependent. 9. RICKI on CPAP 10. GERD 11. Secondary hyperthyroidism 12. H/o CAD with left main occlusion s/p PCI 13. 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 Dr. Macias consulted for Abx recommendations. v 14. Mitral valve stenosis s/p valvuloplasty 15. Peripheral artery disease 16. H/o VATER syndrome DISCHARGE DIAGNOSES: 1. Cardiac Arrest, 2. Calciphylaxis 4. ESRD on Hemodialysis 4. Mechanical aortic valve- on Coumadin 5. Hypertension 6. Acute on chronic anemia- h/o multiple transfusions. 7. Hypothyroidism 8. Diabetes mellitus- Insulin dependent. 9. RICKI on CPAP 10. GERD 11. Secondary hyperthyroidism 12. H/o CAD with left main occlusion s/p PCI 13. 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 Dr. Macias consulted for Abx recommendations. v 14. Mitral valve stenosis s/p valvuloplasty 15. Peripheral artery disease 16. H/o VATER syndrome 17. Rash from Bactrim, resolved CHIEF COMPLAINT: Rash. HISTORY OF PRESENT ILLNESS/HOSPITAL COURSE: This is a 45 y/o M with an extensive medical history including CAD with stenosis of left main s/p PCI, ESRD on HD for many years, PAD, Mechanical Aortic valve replacement on coumadin, mitral valve stenosis s/p valvuloplasty, endocarditis, and recurrent b/l thigh graft infections on chronic suppressive antibiotic therapy who presented complaining of b/l lower extremity pain, swelling, as well as feeling tired and weak. Pt had been seen by his PCP and had his Bactrim d/c as he developed an allergic reaction - rash. This has been resolving. Pt stated that he had started to develop a painful, palpable rash in his lower extremities. No Fevers/chills, no recent procedures. Pt was evaluated by nephrology and found to have calciphylaxis, and to confirm this, surgery was consulted for a skin biopsy. During the course of the hospitalization, the patient was treated for the calciphylaxis by nephrology with the holding of his calcium containing medication, and treatment with sodium thiosulfate with the dialysis sessions. Coumadin and insulin were needed to be continued in order to treat the patient's underlying mechanical AVR and IDDM. The patient's pain was controlled with Percocet and morphine. Patient had been tolerating the above therapy, and a skin biopsy was performed, with results pending. The patient had a very poor prognosis given the calciphylaxis, as well as his underlying vasculopathy (CAD with left main stenosis, PAD, ESRD on halfway HD , AVR on coumadin). On the morning of October 13, 2016, it was reported that the patient woke up with use the bathroom, and was found unresponsive shortly after. [facility] Cart was called and ACLS protocol was followed with CPR/epi/bicarb, however there was no ROSC. Pt at 6:29am and the family was notified. Vital Signs/I&Os Vital Signs Date Time Temp Pulse Resp B/P (MAP) Pulse Ox O2 Delivery O2 Flow Rate FiO2 10/12/16 23:08 16 10/12/16 22:33 BIPAP/CPAP 10/12/16 22:00 97.4 86 99/58 (72) 98 Microbiology Microbiology 10/09/16 Blood Culture - Final, Complete NO GROWTH AFTER 5 DAYS 10/09/16 Blood Culture - Final, Complete NO GROWTH AFTER 5 DAYS Discharge Medications Scheduled Calcitriol (Rocaltrol) 0.25 Mcg Cap, 0.25 MCG PO 3XW, (Reported) GETS @ DIALYSIS Cinacalcet Hydrochloride (Sensipar) 30 Mg Tab, 60 MG PO QHS, (Reported) Citalopram Hydrobromide (Citalopram Hydrobromide) 10 Mg Tab, 10 MG PO QHS, ( Reported) Clopidogrel Bisulfate (Plavix) 75 Mg Tab, 75 MG PO QHS, (Reported) Insulin Glargine (Lantus) 1 Units/0.01 Ml Susp, 30 UNITS SC DAILY, (Reported) Levothyroxine Sodium (Synthroid) 200 Mcg Tab, 200 MCG PO QHS, (Reported) Pantoprazole Sodium (Pantoprazole Sodium) 40 Mg Tab, 40 MG PO QHS, (Reported) Sevelamer Carbonate (Renvela) 800 Mg Tab, 1,600 MG PO WM, (Reported) Trazodone HCl (Trazodone HCl) 50 Mg Tab, 50 MG PO QHS, (Reported) Vitamin B Cmplx/Vitc/Folic Ac (Nephro-Hannah Rx 1 mg) 1 Tab Tab, 1 TAB PO DAILY, ( Reported) Vitamin D (Drisdol) 50,000 Unit Cap, 50,000 UNIT PO QWEEK, (Reported) GETS @ DIALYSIS Warfarin Sod (Coumadin) 5 Mg Tab, 5 MG PO QHS, (Reported) Zolpidem Tartrate (Zolpidem Tartrate) 5 Mg Tab, 5 MG PO QHS, (Reported) Scheduled PRN Nitroglycerin (Nitrostat) 0.4 Mg Subl, 0.4 MG SL NITRO PRN for ANGINA, (Reported ) Allergies Coded Allergies: Succinylcholine (Verified Allergy, Severe, ANAPHYLAXIS, 08/23/12) Latex (Verified Allergy, Intermediate, RASH, 08/23/12) Levofloxacin (Verified Allergy, Unknown, 10/12/16) NOTE HAS RECEIVED CIPRO PRIOR w/NO PROBLEM Trazodone (Verified Adverse Reaction, Mild, hallucinate, 04/30/14) HAPPENED ONCE. NOW TAKES AT HOME EWITH NO PROBLEM PER PATIENT 04/30/14 JAMES WILKINS MD October 16, 2016 23:32
== END 2016-10-13 06:30 | disposition expired | DRG 606 ==
LOC: EDBD 14:48 → M ED 18:08 → M ED INP 19:56 → M MS5PR 21:20
PROVIDERS: ADMIT Internal Medicine Nephrology; ATTEND Internal Medicine
PROC: 0HBNXZX Excision of Left Foot Skin, External Approach, Diagnostic (ICD-10-PCS; principal; 2016-10-11)
DX: L94.2 Calcinosis cutis (principal); N18.6 End stage renal disease; T86.822 Skin graft (allograft) (autograft) infection; K62.5 Hemorrhage of anus and rectum; Q60.2 Renal agenesis, unspecified; N25.81 Secondary hyperparathyroidism of renal origin; Q87.2 Congenital malformation syndromes predominantly involving limbs; I12.0 Hypertensive chronic kidney disease with stage 5 chronic kidney disease or end stage renal disease; E78.5 Hyperlipidemia, unspecified; E03.9 Hypothyroidism, unspecified; E11.9 Type 2 diabetes mellitus without complications; G47.33 Obstructive sleep apnea (adult) (pediatric); F32.9 Major depressive disorder, single episode, unspecified; I77.6 Arteritis, unspecified; K21.9 Gastro-esophageal reflux disease without esophagitis; D63.1 Anemia in chronic kidney disease; T36.8X5A Adverse effect of other systemic antibiotics, initial encounter; K44.9 Diaphragmatic hernia without obstruction or gangrene; K59.4 Anal spasm; E83.39 Other disorders of phosphorus metabolism; E83.59 Other disorders of calcium metabolism; I73.9 Peripheral vascular disease, unspecified; Z99.2 Dependence on renal dialysis; I25.2 Old myocardial infarction; Z99.89 Dependence on other enabling machines and devices; Z79.01 Long term (current) use of anticoagulants; Z95.2 Presence of prosthetic heart valve; Z86.14 Personal history of Methicillin resistant Staphylococcus aureus infection; Z79.4 Long term (current) use of insulin; Z79.2 Long term (current) use of antibiotics; Z88.8 Allergy status to other drugs, medicaments and biological substances; Z88.1 Allergy status to other antibiotic agents; Z91.040 Latex allergy status; Z79.02 Long term (current) use of antithrombotics/antiplatelets